=== PATIENT | female | born 1935 | race African-American/Black ===

== ENCOUNTER 2016-09-17 14:18 | Inpatient (IN) | payer MEDICARE, OTHER ==
[~2016-09-17] VITALS: Ht 147.3 cm; Wt 71.4 kg
[2016-09-17] VITALS (9 sets, daily range): BP systolic 144–269; BP diastolic 59–123
[~2016-09-17 14:18] MED LIST: ALEN70TA3 PO; ALPR0.254; AMLO10TA2; AMLO10TA4 PO; AMLO1TAB15 PO; ASPI81TA2 PO; CHOL10002 PO; CLON0.1T PO; CYAN10005 PO; FURO-68 PO; HYDR-2868 PO; HYDR10TA2 PO; Hydralazine PO; LABE200T2 PO; LEVO100T5 PO; LEVO200T5 PO; LEVO25TA4 PO; LISI40TA PO; METO100T2 PO; METO50TA2; METO5TAB55 PO; NATE60TA PO; OMEP20CA9 PO; PANT40TA3 PO; PANT40TA5; POLY17PO29 PO; POTA25PA PO; SITA50TA PO; VALS320T2 PO; VALS320T9; VENTOLIN HFA18 GM IH; [UNRECOGNIZED DRUG - OTHER]; combivent IH
[2016-09-17 15:17] LABS: BASO # 0.1 x10^3/uL (0.0-0.2); BASO % 1 % (0-3); EOS % 3 % (0-3); HEMATOCRIT 39.9 % (36.0-47.0); HEMOGLOBIN 13.6 g/dL (12.0-15.5); LYMPH # 1.3 x10^3/uL (1.0-4.8); LYMPH % 17 % (24-48); MEAN CORPUSCULAR HEMOGLOBIN 35 pg (25-35); MEAN CORPUSCULAR HGB CONC 34 g/dL (31-37); MEAN CORPUSCULAR VOLUME 102 fL (79-100); MONO % 6 % (0-9); NEUT % 73 % (31-73); PLATELET COUNT 452 x10^3/uL (140-400); RED BLOOD COUNT 3.92 x10^6/uL (3.50-5.40); WHITE BLOOD COUNT 7.5 x10^3/uL (4.0-11.0)
[2016-09-17 15:29] LABS: CALCIUM 9.6 mg/dL (8.5-10.1); CREATININE 1.4 mg/dL (0.6-1.0); GFR 43.6; POTASSIUM 3.4 mmol/L (3.5-5.1)
[2016-09-17 15:35] LABS: ALBUMIN 3.8 g/dL (3.4-5.0); ALBUMIN/GLOBULIN RATIO 0.7 (1.0-1.7); TOTAL BILIRUBIN 0.7 mg/dL (0.2-1.0)
--- NOTE | 2016-09-17 15:52 | RAD ---
Exam performed: One view chest. History: Direct admit to ICU. Date of service: 09/17/16. Comparison: 10/05/15. Single AP upright portable view chest findings: Cardiomegaly. Small bilateral pleural effusions with probable underlying atelectasis. There is no pneumothorax. Impression: Cardiomegaly with small bilateral pleural effusions.
--- NOTE | 2016-09-17 15:54 | EKG ---
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
[2016-09-17] MEDS ORDERED: hydrALAZINE 20 MG/ML VIAL. IVP PRN (16:15)
--- NOTE | 2016-09-17 16:29 | PDOC2 ---
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 Cammie Núñez SOURCE Source: Chart review, Patient HISTORY OF PRESENT ILLNESS HISTORY OF PRESENT ILLNESS 80 year old female admitted from PCP's office with SBP reportedly > 300. Patient with mild headache but denies visual changes, dizziness, lightheadedness, chest pain, dyspnea, or lower extremity edema. States she "forgets" to take BP meds. Reason for Visit: malignant HTN PAST MEDICAL HISTORY Cardiovascular: CHF (chronic diastolic), HTN, Hyperlipidemia Pulmonary: COPD, Other (recurrent bronchitis) CENTRAL NERVOUS SYSTEM: Periperal neuropathy GI: Constipation, Diverticulosis (2008), GERD, Hemorrhoids, Other (lactose intolerant; h. pylori and antral gastritis - 2010; lipoma of ascending colon - 2010) Heme/Onc: B12 deficiency Hepatobiliary: No pertinent hx Psych: Anxiety Musculoskeletal: Osteoarthritis ENT: Other (chronic open angle glaucoma; bilateral cataracts) Renal/: Chronic renal insuff (stage III) Endocrine: Diabetes, Hypothyroidism, Hyperparathyroidism, Osteoporosis, Other ( vitamin D deficiency) Grav: 9 Para: 8 PAST SURGICAL HISTORY Past Surgical History: Appendectomy, Cholecystectomy, Hernia Repair (abdominal ), Hysterectomy FAMILY HISTORY Family History: Cancer (stomach - father), Diabetes SOCIAL HISTORY Smoke: No ALCOHOL: none Drugs: None Lives: Alone CURRENT MEDICATIONS CURRENT MEDICATIONS Current Medications Medications (Trade) Dose Ordered Sig/Alexsander Route PRN Reason Start Time Stop Time Status Last Admin Dose Admin Nicardipine HCl 50 mg/Sodium Chloride 270 ml @ 0 mls/hr CONT PRN IV SEE I/O RECORD 09/17/16 14:45 09/17/16 15:20 ALLERGIES ALLERGIES: Coded Allergies: Penicillins (Verified Allergy, Severe, Rash, 02/13/16) levofloxacin (Verified Allergy, Severe, GI upset, 02/13/16) sulfamethoxazole (Verified Allergy, Severe, GI Upset, 02/13/16) trimethoprim (Verified Allergy, Severe, Swelling, 02/13/16) ROS Review of System 14 point review with pertinent positives in HPI PHYSICAL EXAM General: Alert, Oriented X3, Cooperative, No acute distress HEENT: Atraumatic, PERRLA Lungs: Clear to auscultation, Normal air movement Heart: Regular rate, Normal S1, Normal S2, No murmurs, Other (no carotid bruits ) Abdomen: Normal bowel sounds, Soft, No tenderness Extremities: No edema, Normal pulses Skin: No rashes Neuro: Normal speech Psych/Mental Status: Mental status NL, Mood NL MUSCULOSKELETAL: Osteoarthritic changes both hands LABS Lab: Laboratory Tests Test 09/17/16 15:05 White Blood Count 7.5 x10^3/uL (4.0-11.0) Red Blood Count 3.92 x10^6/uL (3.50-5.40) Hemoglobin 13.6 g/dL (12.0-15.5) Hematocrit 39.9 % (36.0-47.0) Mean Corpuscular Volume 102 fL (79-100) Mean Corpuscular Hemoglobin 35 pg (25-35) Mean Corpuscular Hemoglobin Concent 34 g/dL (31-37) Red Cell Distribution Width 13.0 % (11.5-14.5) Platelet Count 452 x10^3/uL (140-400) Neutrophils (%) (Auto) 73 % (31-73) Lymphocytes (%) (Auto) 17 % (24-48) Monocytes (%) (Auto) 6 % (0-9) Eosinophils (%) (Auto) 3 % (0-3) Basophils (%) (Auto) 1 % (0-3) Neutrophils # (Auto) 5.5 x10^3uL (1.8-7.7) Lymphocytes # (Auto) 1.3 x10^3/uL (1.0-4.8) Monocytes # (Auto) 0.4 x10^3/uL (0.0-1.1) Eosinophils # (Auto) 0.2 x10^3/uL (0.0-0.7) Basophils # (Auto) 0.1 x10^3/uL (0.0-0.2) Sodium Level 144 mmol/L (136-145) Potassium Level 3.4 mmol/L (3.5-5.1) Chloride Level 105 mmol/L (98-107) Carbon Dioxide Level 26 mmol/L (21-32) Anion Gap 13 (6-14) Blood Urea Nitrogen 20 mg/dL (7-20) Creatinine 1.4 mg/dL (0.6-1.0) Estimated GFR (Cockcroft-Gault) 43.6 BUN/Creatinine Ratio 14 (6-20) Glucose Level 122 mg/dL (70-99) Calcium Level 9.6 mg/dL (8.5-10.1) Total Bilirubin 0.7 mg/dL (0.2-1.0) Aspartate Amino Transf (AST/SGOT) 26 U/L (15-37) Alanine Aminotransferase (ALT/SGPT) 28 U/L (14-59) Alkaline Phosphatase 72 U/L (46-116) Total Protein 9.0 g/dL (6.4-8.2) Albumin 3.8 g/dL (3.4-5.0) Albumin/Globulin Ratio 0.7 (1.0-1.7) IMAGES IMAGES CXR - small bilateral pleural effusions EKG EKG completed - unable to review ECHOCARDIOGRAM ECHOCARDIOGRAM 08/2013: TTE: The left ventricle is normal size. The left ventricular systolic function is normal. The Ejection Fraction is 60-65 %. There is mild concentric left ventricular hypertrophy. The left atrium is mildly dilated. There is no significant aortic valvular stenosis. Doppler and Color Flow revealed no significant aortic regurgitation. Doppler and Color-flow revealed moderate mitral regurgitation. Doppler and Color Flow revealed moderate tricuspid regurgitation. The PA pressure was estimated at 45 mmHg. There is a small pericardial effusion with no hemodynamic significance. STRESS TEST STRESS TEST 11/17/2014: 1. No EKG evidence of stress-induced ischemia. 2. Nuclear imaging shows no reversible ischemia or infarct. 3. Normal left ventricular systolic function with an ejection fraction of greater than 70%. 4. Low risk Lexiscan nuclear stress test. HEART CATH HEART CATH 06/2015: FINDINGS 1. Hemodynamics: Left ventricular end-diastolic pressure of 21 mmHg. No pullback gradient across the aortic valve. 2. Coronary angiography: a. The left main coronary artery arose from the left sinus of Valsalva, gave rise to the left anterior descending and left circumflex arteries and did not show any significant stenosis. b. The left anterior descending artery did not show any significant stenosis. c. The left circumflex artery did not show any significant stenosis. d. The right coronary artery was a large and dominant vessel arising from the right sinus of Valsalva that did not show any significant stenosis. Conclusion No significant coronary artery disease. Recommendations Medical Therapy ASSESSMENT/PLAN ASSESSMENT/PLAN 1. malignant HTN has not taken meds regularly nicardipine gtt to control BP restart home beta-blockers tonight; losartan and amlodipine in a.m. holding lasix today repeat echo in a.m. 2. hypokalemia replace check Mg 3. chronic diastolic HF check NT-proBNP continue meds - restart furosemide in a.m cath in 2015 without significant findings 4. DM, II per primary service 5. COPD per primary service Problems: LUISA CRAMER MD 09/18/16 1648: CARDIAC CONSULT ALLERGIES ALLERGIES: Coded Allergies: Penicillins (Verified Allergy, Severe, Rash, 02/13/16) levofloxacin (Verified Allergy, Severe, GI upset, 02/13/16) sulfamethoxazole (Verified Allergy, Severe, GI Upset, 02/13/16) trimethoprim (Verified Allergy, Severe, Swelling, 02/13/16) ASSESSMENT/PLAN ASSESSMENT/PLAN Patient seen and examined 09/17/16 (late entry). Agree with DEPUTY ADMINISTRATOR's assessment and plan. Malignant hypertension secondary to non compliance. Restart home meds and titrate cardene off as tolerated. Chr diast heart failure compensated. Agree with repeat 2D echo. Thank you for your consultation. Problems: BREN RAO APRN September 17, 2016 16:29 LUISA CRAMER MD September 18, 2016 16:48
[2016-09-17] MEDS ORDERED: POTASSIUM CHLORIDE 20 MEQ TABLET.ER. PO ONE ×2 (16:30→17:45)
[2016-09-17] MEDS ORDERED: CHOL100013 PO (16:34)
[2016-09-17] MEDS ORDERED: NATE60TA2 PO (16:34)
[2016-09-17] MEDS ORDERED: POLY17PO29 PO (16:34)
[2016-09-17] MEDS ORDERED: POTA20TA4 PO (16:34)
[2016-09-17] MEDS ORDERED: TRAM50TA PO (16:34)
[2016-09-17] MEDS ORDERED: ALEN70TA3 PO (16:34)
[2016-09-17] MEDS ORDERED: NON FORMULARY ITEM (Albuterol Sulfate (Ventolin Hfa Inhaler) 2 PUFF) IH PRN (17:30)
[2016-09-17] MEDS ORDERED: cloNIDine HCL 0.1 MG TABLET PO PRN (17:30)
[2016-09-17] MEDS ORDERED: ALPRAZolam 0.25 MG TABLET PO PRN (17:30)
[2016-09-17] MEDS ORDERED: traMADol 50 MG TABLET PO PRN (17:30)
[2016-09-17] MEDS ORDERED: DEXTROSE 50% 25 GM / 50ML DISP.SYRIN. IV PRN (17:30)
--- NOTE | 2016-09-17 17:39 | PDOC ---
Provider Note Provider Note Pt seen.H&P dictated. #[id number] SAMMI DE PAZ MD September 17, 2016 17:39
--- NOTE | 2016-09-17 18:44 | RAD ---
PROCEDURE CT head without contrast HISTORY Hypertension, headache TECHNIQUE Exposure: One or more of the following individualized dose reduction techniques were utilized for this exam: 1. Automated exposure control. 2. Adjustment of the mA and/or kV according to patient size. 3. Use of iterative reconstruction technique. [address] imaging skullbase to vertex COMPARISON CT head June 27, 2012 FINDINGS Mild generalized brain atrophy is stable. Cerebral periventricular white matter hypoattenuation may be advanced relative to the prior exam. No intracranial hemorrhage, mass, obstructive hydrocephalus, extra-axial fluid collections or infarction. Small lucencies of the calvarium are stable considered benign given stability. Orbits, mastoids and paranasal sinuses are unremarkable. IMPRESSION No acute intracranial CT abnormality. 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 Electronically signed by: Misbah Louis MD (September 17, 2016 18:43:03)
--- NOTE | 2016-09-17 20:35 | HP ---
ADMIT DATE: 09/17/2016 LOCATION: [facility] REASON FOR ADMISSION: Malignant hypertension. HISTORY OF PRESENT ILLNESS: She is an 80-year-old female with history of hypertension, hyperlipidemia, diabetes, has been having problem with high blood pressure, on and off, going on and she says she had side effects from the medications, is not taking properly, came to the office, blood pressure was close to 300 systolic and 120 diastolic. The patient was admitted to the ICU for blood pressure control, was started on Cardene drip. The patient had a cardiac catheterization last year, shows no significant coronary artery disease. PAST MEDICAL HISTORY: Diabetes, chronic renal insufficiency, hypertension, hypothyroidism, osteoporosis, COPD, dysphagia, essential thrombocythemia, diverticulosis. PAST SURGICAL HISTORY: Cardiac catheterization last year, colonoscopy 2011, diverticulosis, esophageal stricture 2011 and recently 2014, hemorrhoids 2011, lipoma, ileocecal valve 2011, Schatzki ring. MEDICATIONS AT HOME: Amlodipine 10 mg daily, aspirin 81 daily, clonidine 0.1 three times daily, Combivent 2 puffs twice a day, DuoNeb 4 times daily, Fosamax 70 mg once a week, Lasix 40 mg daily, vitamin D 1000 units daily. Januvia 50 mg daily, potassium 25 mEq daily, metoprolol 50 mg twice a day, Starlix 60 mg twice a day, Protonix 40 mg daily, Synthroid 200 mcg daily, Tessalon Perles 100 mg, valsartan 320 mg daily, Ventolin 2 puffs 4 times daily, Xanax 0.25 daily. ALLERGIES: TO SULFA, PENICILLIN AND LEVAQUIN. REVIEW OF SYMPTOMS: HEENT: Complains of headaches as well as shortness of breath. GASTROINTESTINAL: No nausea or vomiting. NEUROLOGICAL: No weakness. Rest of the 14 systems was reviewed and negative. PHYSICAL EXAMINATION: VITAL SIGNS: At the time of admission, vitals shows blood pressure 270/123, temperature 99, pulse 100, respirations 20 and 93% on room air. HEENT: Head is atraumatic. Pupils equal. Oral cavity: Dentures. NECK: Supple. Thyroid not enlarged, JVD not elevated. CHEST: Symmetrical. CARDIOVASCULAR: S1, S2. LUNGS: Clear to auscultation. ABDOMEN: Soft, bowel sounds present, no mass palpable. EXTERNAL GENITALIA: No Tenorio. RECTAL: Deferred. EXTREMITIES: No calf tenderness, trace edema. NEUROLOGIC: Cranial nerves intact. Power 5/5 in all extremities. No focal deficits noted. LABORATORY DATA: Shows a white count of 7, hemoglobin 13, platelets 452. Electrolytes show sodium 144, potassium 3.4, chloride 105, BUN 20, creatinine 1.4, glucose 122, magnesium 2.0. LFTs were normal. Chest x-ray, cardiomegaly, small left pleural effusion. EKG done, report is pending and CT of the head was ordered for headache. Report is pending. FINAL IMPRESSION: 1. Malignant hypertension. 2. Uncontrolled hypertension. 3. Diabetes. 4. Hypertension. 5. Hypothyroidism. 6. Essential thrombocytosis. 7. History of diverticulosis. PLAN: At this time, admit to hospital. Control blood pressure with Cardene drip. Cardiology was consulted. Renal was consulted and DVT prophylaxis. Further recommendations to follow. SAMMI DE PAZ MD DR: BHAVANA/sb JOB#: [id number] / [id number] LANDON
[2016-09-17] MEDS: METOPROLOL TART IMMED RELEASE 50 MG TABLET. PO SCH (20:53)
[2016-09-17] MEDS: POLYETHYLENE GLYCOL 3350 17 GM PACKET. PO SCH (20:53)
[2016-09-17] MEDS: ALBUTEROL SULFATE 2.5 MG/3 ML NEBU. NEB PRN (23:07)
[2016-09-18] VITALS (15 sets, daily range): BP systolic 120–177; BP diastolic 50–82
[2016-09-18 00:01] LABS: BILIRUBIN,URINE NEGATIVE (NEG); GLUCOSE,URINE 100 mg/dL (NEG); NITRITE,URINE NEGATIVE (NEG); PROTEIN,URINE 30 mg/dL (NEG-TRACE); UROBILINOGEN,URINE 0.2 mg/dL (0.2 mg/dL)
[2016-09-18 00:20] LABS: BACTERIA,URINE 0 /HPF (0-FEW); RBC,URINE 0 /HPF (0-2); SQUAMOUS EPITHELIAL CELL,UR OCC /LPF
--- NOTE | 2016-09-18 00:36 | ACF ---
Admission Forms Criteria HYPERTENSION Clinical Indications for Admission to Inpatient Care ( Place "X" for any and all applicable criteria): Admission is indicated for ANY ONE of the following(1)(2)(3)(4): [ ]I. Hypertensive emergency, with evidence of acute and progressing target organ disease as indicated by ANY ONE of the following: [ ]a) Hypertensive encephalopathy (eg, confusion, altered mental status) [ ]b) Cerebral infarction [ ]c) Intracranial hemorrhage [ ]d) Myocardial ischemia or infarction [ ]e) Pulmonary edema [ ]f) Aortic dissection [ ]g) Seizure [ ]h) Acute renal insufficiency [ ]i) Papilledema [ ]j) Microangiopathic hemolytic anemia [ ]II. Adrenergic crisis (eg, severe hypertension due to pheochromocytoma crisis, cocaine or amphetamine intoxication, or clonidine withdrawal) [X]III. Severe hypertension (SBP greater than 180 mmHg or DBP greater than 110 mmHg or greater than the 95th percentile for age, gender, and height in pediatric patients) that cannot be controlled (eg, to SBP less than 160 mmHg and DBP less than 100 mmHg in adults) by treatment with oral medication in emergency department or observation care Extended stay beyond goal length of stay may be needed for(11)(12)(13): [ ]a) Persistent hypertensive encephalopathy [ ]b) Continuation of pulmonary edema [ ]c) Recurring or persistent severe hypertension [ ]d) Target organ damage (eg, angina, stroke, aortic dissection) [ ]e) Associated renal insufficiency The original [facility] content created by [employer] has been revised. The portions of the content which have been revised are identified through the use of italic text or in bold, and [facility] has neither reviewed nor approved the modified material. All other unmodified content is copyright [facility]. Please see references footnoted in the original [facility] edition 2016 Admission Criteria Met?: Yes HANNY SANDERS September 18, 2016 00:36
[2016-09-18] MEDS: ALBUTEROL SULFATE 2.5 MG/3 ML NEBU. NEB PRN (05:44)
[2016-09-18 06:10] LABS: BASO % 1 % (0-3); EOS % 4 % (0-3); HEMATOCRIT 37.4 % (36.0-47.0); HEMOGLOBIN 12.4 g/dL (12.0-15.5); LYMPH # 1.8 x10^3/uL (1.0-4.8); LYMPH % 29 % (24-48); MEAN CORPUSCULAR HEMOGLOBIN 34 pg (25-35); MEAN CORPUSCULAR HGB CONC 33 g/dL (31-37); MEAN CORPUSCULAR VOLUME 103 fL (79-100); MONO % 7 % (0-9); NEUT % 59 % (31-73); PLATELET COUNT 432 x10^3/uL (140-400); RED BLOOD COUNT 3.63 x10^6/uL (3.50-5.40); RED CELL DISTRIBUTION WIDTH 13.4 % (11.5-14.5); WHITE BLOOD COUNT 6.3 x10^3/uL (4.0-11.0)
[2016-09-18 06:33] LABS: CALCIUM 8.5 mg/dL (8.5-10.1); CREATININE 1.2 mg/dL (0.6-1.0); POTASSIUM 3.7 mmol/L (3.5-5.1)
[2016-09-18 06:35] LABS: CHOLESTEROL/HDL RATIO 2.3
[2016-09-18] MEDS: INSULIN ASPART 300 UNITS/3 ML INSULN.PEN SQ SCH ×3 (08:00→17:00)
[2016-09-18] MEDS ORDERED: METOPROLOL TART IMMED RELEASE 50 MG TABLET. PO SCH (08:00)
[2016-09-18] MEDS: LEVOTHYROXINE 100 MCG TABLET PO SCH (08:26)
[2016-09-18] MEDS: ASPIRIN CHEWABLE 81 MG TABLET. PO SCH (08:26)
[2016-09-18] MEDS: PANTOPRAZOLE 40 MG TABLET.DR. PO SCH (08:26)
[2016-09-18] MEDS: REPAGLINIDE 0.5 MG TABLET PO SCH ×3 (08:26→16:30)
[2016-09-18] MEDS: POTASSIUM CHLORIDE 20 MEQ TABLET.ER. PO SCH (08:27)
[2016-09-18] MEDS: LOSARTAN POTASSIUM 50 MG TABLET. PO SCH (08:27)
[2016-09-18] MEDS: LINAGLIPTIN 5 MG TABLET PO SCH (08:27)
[2016-09-18] MEDS: METOPROLOL TART IMMED RELEASE 50 MG TABLET. PO SCH ×2 (08:28→21:17)
[2016-09-18] MEDS: FUROSEMIDE 40 MG TABLET. PO SCH (08:28)
[2016-09-18] MEDS: amLODIPine BESYLATE 10 MG TABLET PO SCH (08:28)
[2016-09-18] MEDS: POLYETHYLENE GLYCOL 3350 17 GM PACKET. PO SCH ×2 (08:28→21:18)
[2016-09-18] MEDS ORDERED: FUROSEMIDE 40 MG TABLET. PO SCH (09:00)
[2016-09-18] MEDS ORDERED: amLODIPine BESYLATE 10 MG TABLET PO SCH (09:00)
[2016-09-18] MEDS ORDERED: LOSARTAN POTASSIUM 50 MG TABLET. PO SCH (09:00)
--- NOTE | 2016-09-18 09:44 | PDOC ---
PROGRESS NOTES Subjective Subjective Off cardine drip, no cp or sob Objective Objective Vital Signs Date Time Temp Pulse Resp B/P (MAP) Pulse Ox O2 Delivery O2 Flow Rate FiO2 09/18/16 08:28 79 158/61 09/18/16 08:00 98.3 16 93 Room Air 98.3 09/18/16 06:00 2.0 Intake and Output 09/18/16 07:00 Intake Total 700 ml Output Total 277 ml Balance 423 ml Intake Oral 700 ml Output Urine Total 277 ml # Voids 2 Physical Exam Abdomen: Normal bowel sounds, Soft, No tenderness Heart: Regular rate, Normal S1, Normal S2, No murmurs, Other (no carotid bruits ) Extremities: No edema, Normal pulses General: Alert, Oriented X3, Cooperative, No acute distress HEENT: Atraumatic, PERRLA Lungs: Clear to auscultation, Normal air movement MUSCULOSKELETAL: Osteoarthritic changes both hands Neuro: Normal speech Psych/Mental Status: Mental status NL, Mood NL Skin: No rashes Assessment Assessment FINAL IMPRESSION: 1. Malignant hypertension. 2. Uncontrolled hypertension. 3. Diabetes. 4. Hypertension. 5. Hypothyroidism. 6. Essential thrombocytosis. 7. History of diverticulosis. PLAN: Off cardine drip. resumed home meds. Ct head -ve.atrophy. cxr cardiomegaly+mild effusions ekg -ve for ischemia. cardiology + renal consult. labs cr 1.2 .tsh 14-not taking synthroid regularly. At this time, admit to hospital. Control blood pressure with Cardene drip. Cardiology was consulted. Renal was consulted and DVT prophylaxis. Further recommendations to follow. Problems: Comment Review of Relevant I have reviewed the following items ev (where applicable) has been applied. Labs Laboratory Tests Test 09/17/16 15:05 09/17/16 16:00 09/17/16 23:51 09/18/16 05:30 White Blood Count 7.5 x10^3/uL (4.0-11.0) 6.3 x10^3/uL (4.0-11.0) Red Blood Count 3.92 x10^6/uL (3.50-5.40) 3.63 x10^6/uL (3.50-5.40) Hemoglobin 13.6 g/dL (12.0-15.5) 12.4 g/dL (12.0-15.5) Hematocrit 39.9 % (36.0-47.0) 37.4 % (36.0-47.0) Mean Corpuscular Volume 102 fL (79-100) 103 fL (79-100) Mean Corpuscular Hemoglobin 35 pg (25-35) 34 pg (25-35) Mean Corpuscular Hemoglobin Concent 34 g/dL (31-37) 33 g/dL (31-37) Red Cell Distribution Width 13.0 % (11.5-14.5) 13.4 % (11.5-14.5) Platelet Count 452 x10^3/uL (140-400) 432 x10^3/uL (140-400) Neutrophils (%) (Auto) 73 % (31-73) 59 % (31-73) Lymphocytes (%) (Auto) 17 % (24-48) 29 % (24-48) Monocytes (%) (Auto) 6 % (0-9) 7 % (0-9) Eosinophils (%) (Auto) 3 % (0-3) 4 % (0-3) Basophils (%) (Auto) 1 % (0-3) 1 % (0-3) Neutrophils # (Auto) 5.5 x10^3uL (1.8-7.7) 3.7 x10^3uL (1.8-7.7) Lymphocytes # (Auto) 1.3 x10^3/uL (1.0-4.8) 1.8 x10^3/uL (1.0-4.8) Monocytes # (Auto) 0.4 x10^3/uL (0.0-1.1) 0.4 x10^3/uL (0.0-1.1) Eosinophils # (Auto) 0.2 x10^3/uL (0.0-0.7) 0.3 x10^3/uL (0.0-0.7) Basophils # (Auto) 0.1 x10^3/uL (0.0-0.2) 0.0 x10^3/uL (0.0-0.2) Sodium Level 144 mmol/L (136-145) 142 mmol/L (136-145) Potassium Level 3.4 mmol/L (3.5-5.1) 3.7 mmol/L (3.5-5.1) Chloride Level 105 mmol/L (98-107) 107 mmol/L (98-107) Carbon Dioxide Level 26 mmol/L (21-32) 26 mmol/L (21-32) Anion Gap 13 (6-14) 9 (6-14) Blood Urea Nitrogen 20 mg/dL (7-20) 16 mg/dL (7-20) Creatinine 1.4 mg/dL (0.6-1.0) 1.2 mg/dL (0.6-1.0) Estimated GFR (Cockcroft-Gault) 43.6 52.0 BUN/Creatinine Ratio 14 (6-20) Glucose Level 122 mg/dL (70-99) 146 mg/dL (70-99) Calcium Level 9.6 mg/dL (8.5-10.1) 8.5 mg/dL (8.5-10.1) Magnesium Level 2.0 mg/dL (1.8-2.4) Total Bilirubin 0.7 mg/dL (0.2-1.0) Aspartate Amino Transf (AST/SGOT) 26 U/L (15-37) Alanine Aminotransferase (ALT/SGPT) 28 U/L (14-59) Alkaline Phosphatase 72 U/L (46-116) IP-Waz-Y-Type Natriuretic Peptide 1629 pg/mL (0-449) Total Protein 9.0 g/dL (6.4-8.2) Albumin 3.8 g/dL (3.4-5.0) Albumin/Globulin Ratio 0.7 (1.0-1.7) Nasal Screen MRSA (PCR) Negative (Negative) Urine Collection Type Unknown Urine Color Yellow Urine Clarity Clear Urine pH 7.0 Urine Specific [place] 1.010 Urine Protein 30 mg/dL (NEG-TRACE) Urine Glucose (UA) 100 mg/dL (NEG) Urine Ketones (Stick) Negative mg/dL (NEG) Urine Blood Negative (NEG) Urine Nitrite Negative (NEG) Urine Bilirubin Negative (NEG) Urine Urobilinogen Dipstick 0.2 mg/dL (0.2 mg/dL) Urine Leukocyte Esterase Trace (NEG) Urine RBC 0 /HPF (0-2) Urine WBC 1-4 /HPF (0-4) Urine Squamous Epithelial Cells Occ /LPF Urine Bacteria 0 /HPF (0-FEW) Urine Mucus Slight /LPF Triglycerides Level 70 mg/dL (0-150) Cholesterol Level 136 mg/dL (0-200) LDL Cholesterol, Calculated 62 mg/dL (0-100) VLDL Cholesterol, Calculated 14 mg/dL (0-40) Non-HDL Cholesterol Calculated 76 mg/dL (0-129) HDL Cholesterol 60 mg/dL (40-60) Cholesterol/HDL Ratio 2.3 Thyroid Stimulating Hormone (TSH) 14.283 uIU/mL (0.358-3.74) Test 09/18/16 08:25 Glucose (Fingerstick) 134 mg/dL (70-99) Medications Current Medications Albuterol Sulfate (Ventolin Neb Soln) 2.5 mg PRN Q6HRS PRN NEB SHORTNESS OF BREATH Last administered on 09/18/16 05:44; Start 09/17/16 at 17:45 Alprazolam (Xanax) 0.25 mg PRN BID PRN PO ANXIETY; Start 09/17/16 at 17:30 Amlodipine Besylate (Norvasc) 10 mg DAILY PO Last administered on 09/18/16 08: 28; Start 09/18/16 at 09:00 Amlodipine Besylate (Norvasc) 10 mg DAILY PO ; Start 09/18/16 at 09:00; Status Cancel Aspirin (Children'S Aspirin) 81 mg DAILY PO Last administered on 09/18/16 08:26 ; Start 09/18/16 at 09:00 Clonidine HCl (Catapres) 0.1 mg PRN DAILY PRN PO ELEVATED BP, SEE COMMENTS; Start 09/17/16 at 17:30 Dextrose (Dextrose 50%-Water Syringe) 12.5 gm PRN Q15MIN PRN IV SEE COMMENTS; Start 09/17/16 at 17:30 Furosemide (Lasix) 40 mg DAILY PO Last administered on 09/18/16 08:28; Start at 09:00 Furosemide (Lasix) 40 mg DAILY PO ; Start 09/18/16 at 09:00; Status Cancel Hydralazine HCl (Apresoline) 10 mg PRN Q4HRS PRN IVP ELEVATED BP, SEE COMMENTS Last administered on 09/18/16 04:05; Start 09/17/16 at 16:15 Insulin Aspart (Novolog) 0-7 UNITS TIDWMEALS SQ ; Start 09/18/16 at 08:00 Levothyroxine Sodium (Synthroid) 200 mcg DAILY07 PO Last administered on 08:26; Start 09/18/16 at 07:00 Linagliptin (Tradjenta) 5 mg DAILY PO Last administered on 09/18/16 08:27; Start 09/18/16 at 09:00 Losartan Potassium (Cozaar) 50 mg DAILYWLUN PO Last administered on 09/18/16 08 :27; Start 09/18/16 at 12:00 Losartan Potassium (Cozaar) 100 mg DAILY PO ; Start 09/18/16 at 09:00; Stop at 09:00; Status DC Metoprolol Tartrate (Lopressor) 50 mg BID PO Last administered on 09/18/16 08: 28; Start 09/17/16 at 21:00 Metoprolol Tartrate (Lopressor) 50 mg BID PO ; Start 09/18/16 at 08:00; Status Cancel Nicardipine HCl 50 mg/Sodium Chloride 270 ml @ 0 mls/hr CONT PRN IV SEE I/O RECORD Last administered on 09/17/16 15:20; Start 09/17/16 at 14:45 Non-Formulary Medication 2 puff PRN Q4-6HRS PRN IH SHORTNESS OF BREATH; Start at 17:30; Stop 09/17/16 at 17:53; Status DC Non-Formulary Medication 70 mg WEEKLY PO ; Start 09/24/16 at 09:00; Status UNV Pantoprazole Sodium (Protonix) 40 mg DAILY PO Last administered on 09/18/16 08: 26; Start 09/18/16 at 09:00 Polyethylene Glycol (miraLAX PACKET) 17 gm BID PO Last administered on 20:53; Start 09/17/16 at 21:00 Potassium Chloride (Klor-Con) 20 meq 1X ONCE PO ; Start 09/17/16 at 17:45; Stop 09/17/16 at 17:46; Status DC Potassium Chloride (Klor-Con) 20 meq DAILY PO Last administered on 09/18/16 08: 27; Start 09/18/16 at 09:00 Potassium Chloride (Klor-Con) 40 meq 1X ONCE PO Last administered on 09/17/16 18:01; Start 09/17/16 at 16:30; Stop 09/17/16 at 16:31; Status DC Repaglinide (Prandin) 0.5 mg TIDAC PO Last administered on 09/18/16 08:26; Start 09/18/16 at 07:30 Tramadol HCl (Ultram) 50 mg PRN Q12HR PRN PO ANXIETY / AGITATION Last administered on 09/17/16 18:02; Start 09/17/16 at 17:30 Vitals/I & O Vital Sign - Last 24 Hours 09/17/16 09/17/16 09/17/16 09/17/16 15:00 15:00 15:30 17:00 Temp 99.0 99.0 Pulse 110 102 102 Resp 20 20 18 B/P (MAP) 269/123 (171) 218/80 (126) 178/97 (124) Pulse Ox 93 92 94 O2 Delivery Room Air Room Air Room Air Room Air 09/17/16 09/17/16 09/17/16 09/17/16 18:00 18:02 19:00 20:00 Pulse 106 99 Resp 18 18 B/P (MAP) 206/77 (120) 161/63 (95) Pulse Ox 93 95 O2 Delivery Room Air Room Air Room Air Nasal Cannula O2 Flow Rate 2.0 09/17/16 09/17/16 09/17/16 09/17/16 20:00 20:53 21:00 22:00 Temp 98.6 98.6 Pulse 102 101 88 88 Resp 24 23 30 B/P (MAP) 154/59 (90) 150/64 147/63 (91) 155/60 (91) Pulse Ox 96 94 98 O2 Delivery Nasal Cannula Nasal Cannula Nasal Cannula O2 Flow Rate 2.0 2.0 2.0 09/17/16 09/17/16 09/17/16 09/18/16 23:00 23:09 23:59 00:00 Temp 98.5 98.5 Pulse 78 72 Resp 24 23 B/P (MAP) 144/60 (88) 159/61 (93) Pulse Ox 98 97 96 O2 Delivery Nasal Cannula Nasal Cannula Nasal Cannula Nasal Cannula O2 Flow Rate 2.0 2.0 2.0 2.0 09/18/16 09/18/16 09/18/16 09/18/16 01:00 02:00 03:00 04:00 Pulse 72 73 69 Resp 33 18 26 B/P (MAP) 149/62 (91) 160/55 (90) 161/76 (104) Pulse Ox 98 99 96 O2 Delivery Nasal Cannula Nasal Cannula Nasal Cannula Room Air O2 Flow Rate 2.0 2.0 2.0 09/18/16 09/18/16 09/18/16 09/18/16 04:00 04:05 05:00 05:45 Temp 98.7 98.7 Pulse 73 73 78 Resp 20 19 B/P (MAP) 176/76 (109) 176/76 177/82 (113) Pulse Ox 97 96 95 O2 Delivery Room Air Nasal Cannula Nasal Cannula O2 Flow Rate 2.0 2.0 09/18/16 09/18/16 09/18/16 09/18/16 06:00 07:00 08:00 08:00 Temp 98.3 98.3 Pulse 72 83 81 Resp 16 15 16 B/P (MAP) 139/66 (90) 165/71 (102) 158/61 (93) Pulse Ox 94 95 93 O2 Delivery Nasal Cannula Room Air Room Air Room Air O2 Flow Rate 2.0 09/18/16 09/18/16 09/18/16 08:27 08:28 08:28 Pulse 77 79 79 B/P (MAP) 158/61 158/61 158/61 Intake and Output 09/17/16 09/17/16 09/18/16 15:00 23:00 07:00 Intake Total 200 ml 500 ml Output Total 2 ml 275 ml Balance 198 ml 225 ml SAMMI DE PAZ MD September 18, 2016 09:44
--- NOTE | 2016-09-18 11:01 | CARD ---
APPROVED REPORT EXAM: Two-dimensional and M-mode echocardiogram with Doppler and color Doppler. Other Information Quality : Average Rhythm : NSR INDICATION Hypertension/HCVD 2D DIMENSIONS RVDd2.1 (2.9-3.5cm)Left Atrium(2D)3.7 (1.6-4.0cm) IVSd1.6 (0.7-1.1cm)Aortic Root(2D)2.8 (2.0-3.7cm) LVDd3.5 (3.9-5.9cm)LVOT Diameter2.0 (1.8-2.4cm) PWd1.6 (0.7-1.1cm)LVDs2.4 (2.5-4.0cm) FS (%) 33.1 %SV33.0 ml LVEF(%)62.7 (>50%) Aortic Valve AoV Peak Dao.133.0cm/sAoV VTI30.2cm AO Peak GR.7.1mmHgLVOT VTI 27.35cm AO Mean GR.4mmHg Mitral Valve MV E Jzmiewdu326.9cm/sMV E Peak Gr.4mmHg MV DECEL [id number] A Ifduywaq83.2cm/s MV NSF33obS/A Ratio1.4 MV A [id number] (PHT)3.06cm2 TDI Lateral E' P. V6.63cm/sMedial E' P. V4.96cm/s E/Lateral E'15.4E/Medial E'20.5 Tricuspid Valve TR P. Vipinpdp352eq/sRAP [id number] TR Peak Gr.[id number] LEFT VENTRICLE The left ventricle is normal size. There is mild to moderate concentric left ventricular hypertrophy. Left ventricle systolic function is normal. The Ejection Fraction is 60-65%. There is normal LV segm ental wall motion. The left ventricular diastolic function and filling is normal for age. There is no ventricular septal defect visualized. RIGHT VENTRICLE The right ventricle is normal size. The right ventricular systolic function is normal. ATRIA The left atrium size is normal. The right atrium size is normal. The interatrial septum is intact wit h no evidence for an atrial septal defect or patent foramen ovale as noted on 2-D or Doppler imaging. AORTIC VALVE Cannot rule out calcified and restricted motion of the RCC> The aortic valve is trileaflet. Doppler a nd Color Flow revealed no significant aortic regurgitation. There is no significant aortic valvular s tenosis. MITRAL VALVE The mitral valve is normal in structure. There is no mitral valve stenosis. Doppler and Color Flow re vealed mild mitral regurgitation. TRICUSPID VALVE The tricuspid valve is normal in structure and function. Doppler and Color Flow revealed trace to mil d tricuspid regurgitation. The PA pressure was estimated at 26 mmHg. There is no tricuspid valve sten osis. PULMONIC VALVE The pulmonic valve is not well visualized. Doppler and Color Flow revealed no pulmonic valvular regur gitation. There is no pulmonic valvular stenosis. GREAT VESSELS The aortic root is normal in size. The IVC is normal in size and collapses >50% with inspiration. PERICARDIAL EFFUSION There is bilateral pleural effusions. There is a trace circumferential pericardial effusion. Critical Notification Date: 09/18/2016 Time: 10:29 Other Discipline : ETHAN Kirk Critical Value: Yes <Conclusion> Left ventricle systolic function is normal. The Ejection Fraction is 60-65%. There is normal LV segmental wall motion. There is mild to moderate concentric left ventricular hypertrophy. There is bilateral pleural effusions.
--- NOTE | 2016-09-18 11:34 | PDOC2 ---
CONSULT Date of Consult Date of Consult DATE: 09/18/16 TIME: 11:31 Reason for Consult Reason for Consult: MALIGNANT HTN AND CKD Referring Physician Referring Physician: BALDEV Identification/Chief Complaint Chief Complaint CONFUSION Source Source: Chart review History of Present Illness Reason for Visit: THIS IS AN 80 YR OLD ADMITTED WITH CONFUSION. SHE IS NOTED TO HAVE A SBP OF ABOUT 260 AND DBP OF ABOUT 120 ON ADMIT. HER CR IS ABOUT 1.4-1.5. SHE HAS A HX OF HTN AND DM. NO HX OF ANY KIDNEY OR BLADDER SURGERIES HEMATURIA DYSURIA OR FREQUENCY NOTED Past Medical History Cardiovascular: CHF (chronic diastolic), HTN, Hyperlipidemia Pulmonary: COPD, Other (recurrent bronchitis) CENTRAL NERVOUS SYSTEM: Periperal neuropathy GI: Constipation, Diverticulosis (2008), GERD, Hemorrhoids, Other (lactose intolerant; h. pylori and antral gastritis - 2010; lipoma of ascending colon - 2010) Heme/Onc: B12 deficiency Hepatobiliary: No pertinent hx Psych: Anxiety Musculoskeletal: Osteoarthritis Rheumatologic: No pertinent hx Infectious disease: No pertinent hx ENT: Other (chronic open angle glaucoma; bilateral cataracts) Renal/: Chronic renal insuff (stage III) Endocrine: Diabetes, Hypothyroidism, Hyperparathyroidism, Osteoporosis, Other ( vitamin D deficiency) Grav: 9 Para: 8 Past Surgical History Past Surgical History: Appendectomy, Cholecystectomy, Hernia Repair (abdominal ), Hysterectomy Family History Family History: Cancer (stomach - father), Diabetes Social History No ALCOHOL: none Drugs: None Lives: Alone Domestic Violence: Neg Current Medications Current Medications Current Medications Nicardipine HCl 50 mg/Sodium Chloride 270 ml @ 0 mls/hr CONT PRN IV SEE I/O RECORD Last administered on 09/17/16 15:20; Start 09/17/16 at 14:45 Metoprolol Tartrate (Lopressor) 50 mg BID PO Last administered on 09/18/16 08: 28; Start 09/17/16 at 21:00 Losartan Potassium (Cozaar) 50 mg DAILYWLUN PO Last administered on 09/18/16 08 :27; Start 09/18/16 at 12:00 Amlodipine Besylate (Norvasc) 10 mg DAILY PO ; Start 09/18/16 at 09:00; Status Cancel Hydralazine HCl (Apresoline) 10 mg PRN Q4HRS PRN IVP ELEVATED BP, SEE COMMENTS Last administered on 09/18/16 04:05; Start 09/17/16 at 16:15 Potassium Chloride (Klor-Con) 40 meq 1X ONCE PO Last administered on 09/17/16 18:01; Start 09/17/16 at 16:30; Stop 09/17/16 at 16:31; Status DC Furosemide (Lasix) 40 mg DAILY PO ; Start 09/18/16 at 09:00; Status Cancel Insulin Aspart (Novolog) 0-7 UNITS TIDWMEALS SQ ; Start 09/18/16 at 08:00 Dextrose (Dextrose 50%-Water Syringe) 12.5 gm PRN Q15MIN PRN IV SEE COMMENTS; Start 09/17/16 at 17:30 Alprazolam (Xanax) 0.25 mg PRN BID PRN PO ANXIETY; Start 09/17/16 at 17:30 Amlodipine Besylate (Norvasc) 10 mg DAILY PO Last administered on 09/18/16 08: 28; Start 09/18/16 at 09:00 Aspirin (Children'S Aspirin) 81 mg DAILY PO Last administered on 09/18/16 08:26 ; Start 09/18/16 at 09:00 Clonidine HCl (Catapres) 0.1 mg PRN DAILY PRN PO ELEVATED BP, SEE COMMENTS; Start 09/17/16 at 17:30 Furosemide (Lasix) 40 mg DAILY PO Last administered on 09/18/16 08:28; Start at 09:00 Metoprolol Tartrate (Lopressor) 50 mg BID PO ; Start 09/18/16 at 08:00; Status Cancel Pantoprazole Sodium (Protonix) 40 mg DAILY PO Last administered on 09/18/16 08: 26; Start 09/18/16 at 09:00 Polyethylene Glycol (miraLAX PACKET) 17 gm BID PO Last administered on 20:53; Start 09/17/16 at 21:00 Potassium Chloride (Klor-Con) 20 meq DAILY PO Last administered on 09/18/16 08: 27; Start 09/18/16 at 09:00 Tramadol HCl (Ultram) 50 mg PRN Q12HR PRN PO ANXIETY / AGITATION Last administered on 09/17/16 18:02; Start 09/17/16 at 17:30 Non-Formulary Medication 2 puff PRN Q4-6HRS PRN IH SHORTNESS OF BREATH; Start at 17:30; Stop 09/17/16 at 17:53; Status DC Non-Formulary Medication 70 mg WEEKLY PO ; Start 09/24/16 at 09:00; Status UNV Levothyroxine Sodium (Synthroid) 200 mcg DAILY07 PO Last administered on 08:26; Start 09/18/16 at 07:00 Repaglinide (Prandin) 0.5 mg TIDAC PO Last administered on 09/18/16 08:26; Start 09/18/16 at 07:30 Linagliptin (Tradjenta) 5 mg DAILY PO Last administered on 09/18/16 08:27; Start 09/18/16 at 09:00 Losartan Potassium (Cozaar) 100 mg DAILY PO ; Start 09/18/16 at 09:00; Stop at 09:00; Status DC Potassium Chloride (Klor-Con) 20 meq 1X ONCE PO ; Start 09/17/16 at 17:45; Stop 09/17/16 at 17:46; Status DC Albuterol Sulfate (Ventolin Neb Soln) 2.5 mg PRN Q6HRS PRN NEB SHORTNESS OF BREATH Last administered on 09/18/16 05:44; Start 09/17/16 at 17:45 Active Scripts Active Reported Tramadol Hcl 50 Mg Tablet 1 Tab PO PRN Q12HR PRN Nateglinide 60 Mg Tablet 60 Mg PO TIDBFRMEAL Miralax (Polyethylene Glycol 3350) 17 Gm Powd.pack 1 Packet PO BID Klor-Con M20 (Potassium Chloride) 20 Meq Tab.er.prt 25 Meq PO DAILY Fosamax (Alendronate Sodium) 70 Mg Tablet 70 Mg PO WEEKLY Vitamin D (Cholecalciferol (Vitamin D3)) 1,000 Unit Capsule 1,000 Unit PO Pantoprazole Sodium 40 Mg Tablet. Alprazolam 0.25 Mg Tablet Metoprolol Tartrate 50 Mg Tablet Norvasc (Amlodipine Besylate) 10 Mg Tablet 10 Mg PO DAILY Clonidine Hcl 0.1 Mg Tablet 1 Tab PO DAILY PRN Januvia (Sitagliptin Phosphate) 50 Mg Tablet 1 Tab PO DAILY Levothyroxine Sodium 200 Mcg Tablet 1 Tab PO DAILY Ventolin Hfa Inhaler (Albuterol Sulfate) 18 Gm Hfa.aer.ad 2 Puff IH PRN Q4-6HRS PRN Diovan (Valsartan) 320 Mg Tablet 320 Mg PO DAILY Aspirin 81 Mg Tab.chew 81 Mg PO Lasix (Furosemide) 40 Mg Tablet 40 Mg PO DAILY Allergies Allergies: Coded Allergies: Penicillins (Verified Allergy, Severe, Rash, 02/13/16) levofloxacin (Verified Allergy, Severe, GI upset, 02/13/16) sulfamethoxazole (Verified Allergy, Severe, GI Upset, 02/13/16) trimethoprim (Verified Allergy, Severe, Swelling, 02/13/16) ROS Review of System UNABLE TO OBTAIN Physical Exam General: Cooperative, No acute distress HEENT: Atraumatic, PERRLA Lungs: Clear to auscultation, Normal air movement Heart: Regular rate Abdomen: Normal bowel sounds, Soft, No tenderness Extremities: No clubbing Skin: No breakdown Neuro: Other (CONFUSED) Psych/Mental Status: Other (CONFUSED) MUSCULOSKELETAL: No deformity Vitals VITALS Vital Signs Date Time Temp Pulse Resp B/P (MAP) Pulse Ox O2 Delivery O2 Flow Rate FiO2 09/18/16 10:00 65 16 132/63 (86) 95 Room Air 09/18/16 08:00 98.3 98.3 09/18/16 06:00 2.0 Labs Labs Laboratory Tests Test 09/17/16 15:05 09/17/16 16:00 09/17/16 23:51 09/18/16 05:30 White Blood Count 7.5 x10^3/uL (4.0-11.0) 6.3 x10^3/uL (4.0-11.0) Red Blood Count 3.92 x10^6/uL (3.50-5.40) 3.63 x10^6/uL (3.50-5.40) Hemoglobin 13.6 g/dL (12.0-15.5) 12.4 g/dL (12.0-15.5) Hematocrit 39.9 % (36.0-47.0) 37.4 % (36.0-47.0) Mean Corpuscular Volume 102 fL (79-100) 103 fL (79-100) Mean Corpuscular Hemoglobin 35 pg (25-35) 34 pg (25-35) Mean Corpuscular Hemoglobin Concent 34 g/dL (31-37) 33 g/dL (31-37) Red Cell Distribution Width 13.0 % (11.5-14.5) 13.4 % (11.5-14.5) Platelet Count 452 x10^3/uL (140-400) 432 x10^3/uL (140-400) Neutrophils (%) (Auto) 73 % (31-73) 59 % (31-73) Lymphocytes (%) (Auto) 17 % (24-48) 29 % (24-48) Monocytes (%) (Auto) 6 % (0-9) 7 % (0-9) Eosinophils (%) (Auto) 3 % (0-3) 4 % (0-3) Basophils (%) (Auto) 1 % (0-3) 1 % (0-3) Neutrophils # (Auto) 5.5 x10^3uL (1.8-7.7) 3.7 x10^3uL (1.8-7.7) Lymphocytes # (Auto) 1.3 x10^3/uL (1.0-4.8) 1.8 x10^3/uL (1.0-4.8) Monocytes # (Auto) 0.4 x10^3/uL (0.0-1.1) 0.4 x10^3/uL (0.0-1.1) Eosinophils # (Auto) 0.2 x10^3/uL (0.0-0.7) 0.3 x10^3/uL (0.0-0.7) Basophils # (Auto) 0.1 x10^3/uL (0.0-0.2) 0.0 x10^3/uL (0.0-0.2) Sodium Level 144 mmol/L (136-145) 142 mmol/L (136-145) Potassium Level 3.4 mmol/L (3.5-5.1) 3.7 mmol/L (3.5-5.1) Chloride Level 105 mmol/L (98-107) 107 mmol/L (98-107) Carbon Dioxide Level 26 mmol/L (21-32) 26 mmol/L (21-32) Anion Gap 13 (6-14) 9 (6-14) Blood Urea Nitrogen 20 mg/dL (7-20) 16 mg/dL (7-20) Creatinine 1.4 mg/dL (0.6-1.0) 1.2 mg/dL (0.6-1.0) Estimated GFR (Cockcroft-Gault) 43.6 52.0 BUN/Creatinine Ratio 14 (6-20) Glucose Level 122 mg/dL (70-99) 146 mg/dL (70-99) Calcium Level 9.6 mg/dL (8.5-10.1) 8.5 mg/dL (8.5-10.1) Magnesium Level 2.0 mg/dL (1.8-2.4) Total Bilirubin 0.7 mg/dL (0.2-1.0) Aspartate Amino Transf (AST/SGOT) 26 U/L (15-37) Alanine Aminotransferase (ALT/SGPT) 28 U/L (14-59) Alkaline Phosphatase 72 U/L (46-116) EV-Cal-K-Type Natriuretic Peptide 1629 pg/mL (0-449) Total Protein 9.0 g/dL (6.4-8.2) Albumin 3.8 g/dL (3.4-5.0) Albumin/Globulin Ratio 0.7 (1.0-1.7) Nasal Screen MRSA (PCR) Negative (Negative) Urine Collection Type Unknown Urine Color Yellow Urine Clarity Clear Urine pH 7.0 Urine Specific [place]erna 1.010 Urine Protein 30 mg/dL (NEG-TRACE) Urine Glucose (UA) 100 mg/dL (NEG) Urine Ketones (Stick) Negative mg/dL (NEG) Urine Blood Negative (NEG) Urine Nitrite Negative (NEG) Urine Bilirubin Negative (NEG) Urine Urobilinogen Dipstick 0.2 mg/dL (0.2 mg/dL) Urine Leukocyte Esterase Trace (NEG) Urine RBC 0 /HPF (0-2) Urine WBC 1-4 /HPF (0-4) Urine Squamous Epithelial Cells Occ /LPF Urine Bacteria 0 /HPF (0-FEW) Urine Mucus Slight /LPF Triglycerides Level 70 mg/dL (0-150) Cholesterol Level 136 mg/dL (0-200) LDL Cholesterol, Calculated 62 mg/dL (0-100) VLDL Cholesterol, Calculated 14 mg/dL (0-40) Non-HDL Cholesterol Calculated 76 mg/dL (0-129) HDL Cholesterol 60 mg/dL (40-60) Cholesterol/HDL Ratio 2.3 Thyroid Stimulating Hormone (TSH) 14.283 uIU/mL (0.358-3.74) Test 09/18/16 08:25 Glucose (Fingerstick) 134 mg/dL (70-99) Laboratory Tests Test 09/17/16 15:05 09/17/16 16:00 09/17/16 23:51 09/18/16 05:30 White Blood Count 7.5 x10^3/uL (4.0-11.0) 6.3 x10^3/uL (4.0-11.0) Red Blood Count 3.92 x10^6/uL (3.50-5.40) 3.63 x10^6/uL (3.50-5.40) Hemoglobin 13.6 g/dL (12.0-15.5) 12.4 g/dL (12.0-15.5) Hematocrit 39.9 % (36.0-47.0) 37.4 % (36.0-47.0) Mean Corpuscular Volume 102 fL (79-100) 103 fL (79-100) Mean Corpuscular Hemoglobin 35 pg (25-35) 34 pg (25-35) Mean Corpuscular Hemoglobin Concent 34 g/dL (31-37) 33 g/dL (31-37) Red Cell Distribution Width 13.0 % (11.5-14.5) 13.4 % (11.5-14.5) Platelet Count 452 x10^3/uL (140-400) 432 x10^3/uL (140-400) Neutrophils (%) (Auto) 73 % (31-73) 59 % (31-73) Lymphocytes (%) (Auto) 17 % (24-48) 29 % (24-48) Monocytes (%) (Auto) 6 % (0-9) 7 % (0-9) Eosinophils (%) (Auto) 3 % (0-3) 4 % (0-3) Basophils (%) (Auto) 1 % (0-3) 1 % (0-3) Neutrophils # (Auto) 5.5 x10^3uL (1.8-7.7) 3.7 x10^3uL (1.8-7.7) Lymphocytes # (Auto) 1.3 x10^3/uL (1.0-4.8) 1.8 x10^3/uL (1.0-4.8) Monocytes # (Auto) 0.4 x10^3/uL (0.0-1.1) 0.4 x10^3/uL (0.0-1.1) Eosinophils # (Auto) 0.2 x10^3/uL (0.0-0.7) 0.3 x10^3/uL (0.0-0.7) Basophils # (Auto) 0.1 x10^3/uL (0.0-0.2) 0.0 x10^3/uL (0.0-0.2) Sodium Level 144 mmol/L (136-145) 142 mmol/L (136-145) Potassium Level 3.4 mmol/L (3.5-5.1) 3.7 mmol/L (3.5-5.1) Chloride Level 105 mmol/L (98-107) 107 mmol/L (98-107) Carbon Dioxide Level 26 mmol/L (21-32) 26 mmol/L (21-32) Anion Gap 13 (6-14) 9 (6-14) Blood Urea Nitrogen 20 mg/dL (7-20) 16 mg/dL (7-20) Creatinine 1.4 mg/dL (0.6-1.0) 1.2 mg/dL (0.6-1.0) Estimated GFR (Cockcroft-Gault) 43.6 52.0 BUN/Creatinine Ratio 14 (6-20) Glucose Level 122 mg/dL (70-99) 146 mg/dL (70-99) Calcium Level 9.6 mg/dL (8.5-10.1) 8.5 mg/dL (8.5-10.1) Magnesium Level 2.0 mg/dL (1.8-2.4) Total Bilirubin 0.7 mg/dL (0.2-1.0) Aspartate Amino Transf (AST/SGOT) 26 U/L (15-37) Alanine Aminotransferase (ALT/SGPT) 28 U/L (14-59) Alkaline Phosphatase 72 U/L (46-116) OB-Bja-Y-Type Natriuretic Peptide 1629 pg/mL (0-449) Total Protein 9.0 g/dL (6.4-8.2) Albumin 3.8 g/dL (3.4-5.0) Albumin/Globulin Ratio 0.7 (1.0-1.7) Nasal Screen MRSA (PCR) Negative (Negative) Urine Collection Type Unknown Urine Color Yellow Urine Clarity Clear Urine pH 7.0 Urine Specific Merna 1.010 Urine Protein 30 mg/dL (NEG-TRACE) Urine Glucose (UA) 100 mg/dL (NEG) Urine Ketones (Stick) Negative mg/dL (NEG) Urine Blood Negative (NEG) Urine Nitrite Negative (NEG) Urine Bilirubin Negative (NEG) Urine Urobilinogen Dipstick 0.2 mg/dL (0.2 mg/dL) Urine Leukocyte Esterase Trace (NEG) Urine RBC 0 /HPF (0-2) Urine WBC 1-4 /HPF (0-4) Urine Squamous Epithelial Cells Occ /LPF Urine Bacteria 0 /HPF (0-FEW) Urine Mucus Slight /LPF Triglycerides Level 70 mg/dL (0-150) Cholesterol Level 136 mg/dL (0-200) LDL Cholesterol, Calculated 62 mg/dL (0-100) VLDL Cholesterol, Calculated 14 mg/dL (0-40) Non-HDL Cholesterol Calculated 76 mg/dL (0-129) HDL Cholesterol 60 mg/dL (40-60) Cholesterol/HDL Ratio 2.3 Thyroid Stimulating Hormone (TSH) 14.283 uIU/mL (0.358-3.74) Test 09/18/16 08:25 Glucose (Fingerstick) 134 mg/dL (70-99) Assessment/Plan Assessment/Plan IMP MALIGNANT HTN NON COMPLIANCE HTN RELATED ENCEPHALOPATHY CKD STAGE 3 WITH CR ABOUT 1.5 HYPOKALEMIA PLAN REPLACE K CARDENE GTT RESUME ORAL MEDS ENC COMPLIANCE WILL FOLLOW NEIL CHAN MD September 18, 2016 11:34
--- NOTE | 2016-09-18 13:00 | PDOC ---
CARDIO Progress Notes Date and Time Date of Service 09/18/2016 Time of Evaluation 1256 Subjective Subjective: No Chest Pain, No shortness of breath, No Palpitations, No Dizziness Vitals Vitals Vital Signs Date Time Temp Pulse Resp B/P (MAP) Pulse Ox O2 Delivery O2 Flow Rate FiO2 09/18/16 12:00 98.0 67 20 120/57 (78) 92 Room Air 98.0 09/18/16 06:00 2.0 Weight Weight [ ] Input and Output Intake and Output Intake and Output 09/18/16 07:00 Intake Total 700 ml Output Total 277 ml Balance 423 ml Intake Oral 700 ml Output Urine Total 277 ml # Voids 2 Laboratory Labs Laboratory Tests Test 09/17/16 15:05 09/17/16 16:00 09/17/16 23:51 09/18/16 05:30 White Blood Count 7.5 x10^3/uL (4.0-11.0) 6.3 x10^3/uL (4.0-11.0) Red Blood Count 3.92 x10^6/uL (3.50-5.40) 3.63 x10^6/uL (3.50-5.40) Hemoglobin 13.6 g/dL (12.0-15.5) 12.4 g/dL (12.0-15.5) Hematocrit 39.9 % (36.0-47.0) 37.4 % (36.0-47.0) Mean Corpuscular Volume 102 fL (79-100) 103 fL (79-100) Mean Corpuscular Hemoglobin 35 pg (25-35) 34 pg (25-35) Mean Corpuscular Hemoglobin Concent 34 g/dL (31-37) 33 g/dL (31-37) Red Cell Distribution Width 13.0 % (11.5-14.5) 13.4 % (11.5-14.5) Platelet Count 452 x10^3/uL (140-400) 432 x10^3/uL (140-400) Neutrophils (%) (Auto) 73 % (31-73) 59 % (31-73) Lymphocytes (%) (Auto) 17 % (24-48) 29 % (24-48) Monocytes (%) (Auto) 6 % (0-9) 7 % (0-9) Eosinophils (%) (Auto) 3 % (0-3) 4 % (0-3) Basophils (%) (Auto) 1 % (0-3) 1 % (0-3) Neutrophils # (Auto) 5.5 x10^3uL (1.8-7.7) 3.7 x10^3uL (1.8-7.7) Lymphocytes # (Auto) 1.3 x10^3/uL (1.0-4.8) 1.8 x10^3/uL (1.0-4.8) Monocytes # (Auto) 0.4 x10^3/uL (0.0-1.1) 0.4 x10^3/uL (0.0-1.1) Eosinophils # (Auto) 0.2 x10^3/uL (0.0-0.7) 0.3 x10^3/uL (0.0-0.7) Basophils # (Auto) 0.1 x10^3/uL (0.0-0.2) 0.0 x10^3/uL (0.0-0.2) Sodium Level 144 mmol/L (136-145) 142 mmol/L (136-145) Potassium Level 3.4 mmol/L (3.5-5.1) 3.7 mmol/L (3.5-5.1) Chloride Level 105 mmol/L (98-107) 107 mmol/L (98-107) Carbon Dioxide Level 26 mmol/L (21-32) 26 mmol/L (21-32) Anion Gap 13 (6-14) 9 (6-14) Blood Urea Nitrogen 20 mg/dL (7-20) 16 mg/dL (7-20) Creatinine 1.4 mg/dL (0.6-1.0) 1.2 mg/dL (0.6-1.0) Estimated GFR (Cockcroft-Gault) 43.6 52.0 BUN/Creatinine Ratio 14 (6-20) Glucose Level 122 mg/dL (70-99) 146 mg/dL (70-99) Calcium Level 9.6 mg/dL (8.5-10.1) 8.5 mg/dL (8.5-10.1) Magnesium Level 2.0 mg/dL (1.8-2.4) Total Bilirubin 0.7 mg/dL (0.2-1.0) Aspartate Amino Transf (AST/SGOT) 26 U/L (15-37) Alanine Aminotransferase (ALT/SGPT) 28 U/L (14-59) Alkaline Phosphatase 72 U/L (46-116) MH-Dqg-O-Type Natriuretic Peptide 1629 pg/mL (0-449) Total Protein 9.0 g/dL (6.4-8.2) Albumin 3.8 g/dL (3.4-5.0) Albumin/Globulin Ratio 0.7 (1.0-1.7) Nasal Screen MRSA (PCR) Negative (Negative) Urine Collection Type Unknown Urine Color Yellow Urine Clarity Clear Urine pH 7.0 Urine Specific [place] 1.010 Urine Protein 30 mg/dL (NEG-TRACE) Urine Glucose (UA) 100 mg/dL (NEG) Urine Ketones (Stick) Negative mg/dL (NEG) Urine Blood Negative (NEG) Urine Nitrite Negative (NEG) Urine Bilirubin Negative (NEG) Urine Urobilinogen Dipstick 0.2 mg/dL (0.2 mg/dL) Urine Leukocyte Esterase Trace (NEG) Urine RBC 0 /HPF (0-2) Urine WBC 1-4 /HPF (0-4) Urine Squamous Epithelial Cells Occ /LPF Urine Bacteria 0 /HPF (0-FEW) Urine Mucus Slight /LPF Triglycerides Level 70 mg/dL (0-150) Cholesterol Level 136 mg/dL (0-200) LDL Cholesterol, Calculated 62 mg/dL (0-100) VLDL Cholesterol, Calculated 14 mg/dL (0-40) Non-HDL Cholesterol Calculated 76 mg/dL (0-129) HDL Cholesterol 60 mg/dL (40-60) Cholesterol/HDL Ratio 2.3 Thyroid Stimulating Hormone (TSH) 14.283 uIU/mL (0.358-3.74) Test 09/18/16 08:25 09/18/16 11:56 Glucose (Fingerstick) 134 mg/dL (70-99) 81 mg/dL (70-99) Physical Exam HEENT: Neck Supple W Full Motion Chest: Symmetric LUNGS: Clear to Auscultation Heart: S1S2, RRR, no murmurs Abdomen: Soft N/T Extremities: No Edema Neurology: alert, oriented, follow commands Diagnostic Tests Echocardiogram: Normal LVEF (with mild to moderate concentric hypertrophy), Normal Valves Assessment Assessment 1. malignant HTN has not taken meds regularly weaned off nicardipine after resumption of home meds echo with preserved LV function and LVH 2. hypokalemia resolved 3. chronic diastolic HF NT-pro BNP mildly elevated though not diagnostic based on age likely related to uncontrolled HTN 4. DM, II per primary service 5. COPD per primary service 6. elevated TSH defer to primary service Will follow peripherally Please contact for further assistance f/u with cardiology in 4 weeks BREN RAO [employer] September 18, 2016 13:00
[2016-09-19 03:00] VITALS: BP 157/69
[2016-09-19 04:01] LABS: CALCIUM 8.5 mg/dL (8.5-10.1); CREATININE 1.9 mg/dL (0.6-1.0); GFR 30.6; POTASSIUM 3.7 mmol/L (3.5-5.1)
[2016-09-19] MEDS: LEVOTHYROXINE 100 MCG TABLET PO SCH (06:25)
[2016-09-19] MEDS: PANTOPRAZOLE 40 MG TABLET.DR. PO SCH (07:44)
[2016-09-19] MEDS: REPAGLINIDE 0.5 MG TABLET PO SCH ×2 (07:44→11:30)
[2016-09-19] MEDS: INSULIN ASPART 300 UNITS/3 ML INSULN.PEN SQ SCH ×2 (07:45→12:00)
[2016-09-19 08:00] VITALS: BP 165/62
[2016-09-19] MEDS: POLYETHYLENE GLYCOL 3350 17 GM PACKET. PO SCH (09:00)
[2016-09-19] MEDS: LINAGLIPTIN 5 MG TABLET PO SCH (09:00)
[2016-09-19 10:00] VITALS: BP 148/60
[2016-09-19] MEDS: FUROSEMIDE 40 MG TABLET. PO SCH (10:23)
[2016-09-19] MEDS: METOPROLOL TART IMMED RELEASE 50 MG TABLET. PO SCH (10:23)
[2016-09-19] MEDS: POTASSIUM CHLORIDE 20 MEQ TABLET.ER. PO SCH (10:24)
[2016-09-19] MEDS: LOSARTAN POTASSIUM 50 MG TABLET. PO SCH (10:25)
[2016-09-19] MEDS: ASPIRIN CHEWABLE 81 MG TABLET. PO SCH (10:25)
[2016-09-19] MEDS: amLODIPine BESYLATE 10 MG TABLET PO SCH (10:26)
--- NOTE | 2016-09-19 10:36 | PDOC ---
PROGRESS NOTES Subjective Subjective feels better ,anxious to go home Objective Objective Vital Signs Date Time Temp Pulse Resp B/P (MAP) Pulse Ox O2 Delivery O2 Flow Rate FiO2 09/19/16 10:26 67 165/62 09/19/16 08:00 Nasal Cannula 2.0 09/19/16 08:00 98.5 20 97 98.5 Intake and Output 09/19/16 07:00 Intake Total 320 ml Output Total 801 ml Balance -481 ml Intake Oral 320 ml Output Urine Total 801 ml # Bowel Movements 1 Physical Exam Abdomen: Normal bowel sounds, Soft, No tenderness Heart: Regular rate Extremities: No clubbing General: Cooperative, No acute distress HEENT: Atraumatic, PERRLA Lungs: Clear to auscultation, Normal air movement MUSCULOSKELETAL: No deformity Neuro: Other (CONFUSED) Psych/Mental Status: Other (CONFUSED) Skin: No breakdown Assessment Assessment FINAL IMPRESSION: 1. Malignant hypertension. 2. Uncontrolled hypertension. 3. Diabetes. 4. Hypertension. 5. Hypothyroidism. 6. Essential thrombocytosis. 7. History of diverticulosis. PLAN: ECHO good LVF. cr 1.9 stable, CRI. d/c home today Off cardine drip. resumed home meds. Ct head -ve.atrophy. cxr cardiomegaly+mild effusions ekg -ve for ischemia. cardiology + renal consult. labs cr 1.2 .tsh 14-not taking synthroid regularly. At this time, admit to hospital. Control blood pressure with Cardene drip. Cardiology was consulted. Renal was consulted and DVT prophylaxis. Further recommendations to follow. Problems: Comment Review of Relevant I have reviewed the following items ev (where applicable) has been applied. Labs Laboratory Tests Test 09/18/16 11:56 09/18/16 17:18 09/18/16 22:21 09/19/16 03:15 Glucose (Fingerstick) 81 mg/dL (70-99) 84 mg/dL (70-99) 138 mg/dL (70-99) Sodium Level 141 mmol/L (136-145) Potassium Level 3.7 mmol/L (3.5-5.1) Chloride Level 105 mmol/L (98-107) Carbon Dioxide Level 26 mmol/L (21-32) Anion Gap 10 (6-14) Blood Urea Nitrogen 27 mg/dL (7-20) Creatinine 1.9 mg/dL (0.6-1.0) Estimated GFR (Cockcroft-Gault) 30.6 Glucose Level 139 mg/dL (70-99) Calcium Level 8.5 mg/dL (8.5-10.1) Medications Current Medications Losartan Potassium (Cozaar) 50 mg DAILYWLUN PO Last administered on 09/19/16t 10:25; Start 09/18/16 at 12:00 Non-Formulary Medication 70 mg WEEKLY PO ; Start 09/24/16 at 09:00; Status UNV Vitals/I & O Vital Sign - Last 24 Hours 09/18/16 09/18/16 09/18/16 09/18/16 12:00 16:00 19:00 20:00 Temp 98.0 98.2 98.5 98.0 98.2 98.5 Pulse 67 72 77 Resp 20 16 20 B/P (MAP) 120/57 (78) 140/60 (86) 150/54 (86) Pulse Ox 92 97 94 O2 Delivery Room Air Room Air Room Air Room Air 09/18/16 09/18/16 09/19/16 09/19/16 21:17 23:00 03:00 08:00 Temp 98.1 98.2 98.5 98.1 98.2 98.5 Pulse 78 63 68 67 Resp 16 19 20 B/P (MAP) 153/50 153/50 (84) 157/69 (98) 165/62 (96) Pulse Ox 93 95 97 O2 Delivery Room Air Room Air Nasal Cannula O2 Flow Rate 2.0 09/19/16 09/19/16 09/19/16 09/19/16 08:00 10:23 10:24 10:25 Pulse 67 67 67 B/P (MAP) 165/62 165/62 165/62 O2 Delivery Nasal Cannula O2 Flow Rate 2.0 09/19/16 10:26 Pulse 67 B/P (MAP) 165/62 Intake and Output 09/18/16 09/18/16 09/19/16 15:00 23:00 07:00 Intake Total 320 ml Output Total 301 ml 500 ml Balance -301 ml -180 ml SAMMI DE PAZ MD September 19, 2016 10:36
--- NOTE | 2016-09-19 11:23 | PDOC ---
Renal-Progress Notes Subjective Notes Notes NO CHANGE History of Present Illness Hx of present illness STABLE Vitals Vitals Vital Signs Date Time Temp Pulse Resp B/P (MAP) Pulse Ox O2 Delivery O2 Flow Rate FiO2 09/19/16 10:26 67 165/62 09/19/16 08:00 Nasal Cannula 2.0 09/19/16 08:00 98.5 20 97 98.5 Weight Weight [ ] I.O. Intake and Output Intake and Output 09/19/16 06:59 Intake Total 320 ml Output Total 551 ml Balance -231 ml Intake Oral 320 ml Output Urine Total 551 ml Labs Labs Laboratory Tests Test 09/18/16 11:56 09/18/16 17:18 09/18/16 22:21 09/19/16 03:15 Glucose (Fingerstick) 81 mg/dL (70-99) 84 mg/dL (70-99) 138 mg/dL (70-99) Sodium Level 141 mmol/L (136-145) Potassium Level 3.7 mmol/L (3.5-5.1) Chloride Level 105 mmol/L (98-107) Carbon Dioxide Level 26 mmol/L (21-32) Anion Gap 10 (6-14) Blood Urea Nitrogen 27 mg/dL (7-20) Creatinine 1.9 mg/dL (0.6-1.0) Estimated GFR (Cockcroft-Gault) 30.6 Glucose Level 139 mg/dL (70-99) Calcium Level 8.5 mg/dL (8.5-10.1) Review of Systems Constitutional: yes: no symptom reported Ears/Nose/Throat: Yes: no symptom reported Pulmonary: Yes no symptom reported Gastrointestional: Yes: no symptom reported Musculoskeletal: Yes: no symptom reported Psychiatric/Neurological: Yes: no symptom reported Physical Exam General Appearance: no apparent distress Skin: warm Respiratory: bilateral CTA Heart: S1S2, RRR Abdomen: soft, bowel sounds present Genitourinary: bladder flat Neurology: alert, oriented, follow commands Musculoskeletal: Osteoarthritis Assessment Assessment IMP MALIGNANT HTN-CONTROLLED CKD STAGE 3 CR IN BASELINE RANGE PLAN D/W DR DE PAZ PT TO BE DISCHARGED TODAY SHE WILL F/U WITH NEIL LUTZ MD September 19, 2016 11:23
[2016-09-19 12:00] VITALS: BP 159/61
[2016-09-24] MEDS ORDERED: NON FORMULARY ITEM (Alendronate Sodium (Fosamax) 70 MG) PO SCH (09:00)
== END 2016-09-19 13:30 | disposition home health service (06) | DRG 292 ==
LOC: 1 WEST ICU 14:35
PROVIDERS: ADMIT Internal Medicine; ATTEND Internal Medicine
DX: I13.0 Hypertensive heart and chronic kidney disease with heart failure and stage 1 through stage 4 chronic kidney disease, or unspecified chronic kidney disease (principal); I67.4 Hypertensive encephalopathy; I50.32 Chronic diastolic (congestive) heart failure; N18.3 Chronic kidney disease, stage 3 (moderate); D47.3 Essential (hemorrhagic) thrombocythemia; E03.9 Hypothyroidism, unspecified; E11.22 Type 2 diabetes mellitus with diabetic chronic kidney disease; E78.5 Hyperlipidemia, unspecified; E87.6 Hypokalemia; H40.10X0 Unspecified open-angle glaucoma, stage unspecified; J44.9 Chronic obstructive pulmonary disease, unspecified; K21.9 Gastro-esophageal reflux disease without esophagitis; M81.0 Age-related osteoporosis without current pathological fracture; E21.3 Hyperparathyroidism, unspecified; F41.9 Anxiety disorder, unspecified; E11.42 Type 2 diabetes mellitus with diabetic polyneuropathy; K59.00 Constipation, unspecified; H26.9 Unspecified cataract; M19.90 Unspecified osteoarthritis, unspecified site; Z91.19 Patient's noncompliance with other medical treatment and regimen; Z88.0 Allergy status to penicillin; Z88.2 Allergy status to sulfonamides; Z88.8 Allergy status to other drugs, medicaments and biological substances; Z90.49 Acquired absence of other specified parts of digestive tract; Z90.710 Acquired absence of both cervix and uterus; Z80.0 Family history of malignant neoplasm of digestive organs; Z83.3 Family history of diabetes mellitus
CPT/HCPCS: 36415; 70450; 71010; 80048; 80053; 80061; 81001; 82947; 83036; 83735; 83880; 84443; 85027; 87086; 87641; 93005; 93306; 94250; 94640; J0360; J7050; J7030

== ENCOUNTER 2016-10-11 09:47 | Inpatient (IN) | payer MEDICARE, OTHER ==
[~2016-10-11] VITALS: Ht 149.9 cm; Wt 71.4 kg
[~2016-10-11 09:47] MED LIST changes: +CHOL100013 PO; +NATE60TA2 PO; +POTA20TA4 PO; +TRAM50TA PO
[2016-10-11] MEDS ORDERED: IPRATRPIUM/ALBUTEROL 0.5/2.5MG 3 ML NEBU. NEB ONE (10:15)
[2016-10-11 10:17] LABS: BASO # 0.1 x10^3/uL (0.0-0.2); BASO % 1 % (0-3); EOS % 2 % (0-3); HEMOGLOBIN 12.4 g/dL (12.0-15.5); LYMPH # 1.3 x10^3/uL (1.0-4.8); LYMPH % 11 % (24-48); MEAN CORPUSCULAR HEMOGLOBIN 34 pg (25-35); MEAN CORPUSCULAR HGB CONC 35 g/dL (31-37); MEAN CORPUSCULAR VOLUME 98 fL (79-100); MONO % 5 % (0-9); NEUT % 81 % (31-73); PLATELET COUNT 462 x10^3/uL (140-400); RED BLOOD COUNT 3.68 x10^6/uL (3.50-5.40); RED CELL DISTRIBUTION WIDTH 12.9 % (11.5-14.5); WHITE BLOOD COUNT 11.6 x10^3/uL (4.0-11.0)
--- NOTE | 2016-10-11 10:18 | PHYS DOC ---
Past Medical History Past Medical History: Diabetes-Type II, Hypertension, UTI Additional Past Medical Histor: osteoarthritis, enlarged heart Past Surgical History: Appendectomy, Hysterectomy Alcohol Use: None Drug Use: None Adult General Chief Complaint Chief Complaint: SHORTNESS OF BREATH HPI HPI Patient is a 81 year old female with history of hypertension, diabetes type 2, new diagnosis for CHF currently on Lasix 40 mg who presents today with shortness of breath that began last night. Patient states she's also had a slight cough for a day. Patient denies any fever. Denies any congestion. Denies any chest pain. PCP Dr. De Paz Review of Systems Review of Systems Constitutional: See history of present illness Eyes: Denies change in visual acuity, redness, or eye pain [] HENT: Denies nasal congestion or sore throat [] Respiratory: cough and shortness of breath [] Cardiovascular: No additional information not addressed in HPI [] GI: Denies abdominal pain, nausea, vomiting, bloody stools or diarrhea [] : Denies dysuria or hematuria [] Musculoskeletal: Denies back pain or joint pain [] Integument: Denies rash or skin lesions [] Neurologic: Denies headache, focal weakness or sensory changes [] Endocrine: Denies polyuria or polydipsia [] Current Medications Current Medications Current Medications Medications (Trade) Dose Ordered Sig/Alexsander Start Time Stop Time Status Last Admin Dose Admin Albuterol/ Ipratropium (Duoneb) 3 ml 1X ONCE 10/11/16 10:15 10/11/16 10:16 DC 10/11/16 10:34 3 ML Amlodipine Besylate (Norvasc) 10 mg 1X ONCE 10/11/16 11:00 10/11/16 11:01 DC 10/11/16 11:10 10 MG Furosemide (Lasix) 40 mg 1X ONCE 10/11/16 11:00 10/11/16 11:01 DC 10/11/16 11:11 40 MG Metoprolol Tartrate (Lopressor) 50 mg 1X ONCE 10/11/16 11:00 10/11/16 11:01 DC 10/11/16 11:07 50 MG Allergies Allergies Allergies Coded Allergies Type Severity Reaction Last Updated Verified Penicillins Allergy Severe Rash 02/13/16 Yes levofloxacin Allergy Severe GI upset 02/13/16 Yes sulfamethoxazole Allergy Severe GI Upset 02/13/16 Yes trimethoprim Allergy Severe Swelling 02/13/16 Yes Physical Exam Physical Exam Constitutional: Well developed, well nourished, no acute distress, non-toxic appearance. [] HENT: Normocephalic, atraumatic, bilateral external ears normal, oropharynx moist, no oral exudates, nose normal. [] Eyes: PERRLA, EOMI, conjunctiva normal, no discharge. [] Neck: Normal range of motion, no tenderness, supple, no stridor. [] Cardiovascular:Heart rate regular rhythm, no murmur [] Lungs & Thorax: Bilateral breath sounds clear to auscultation though patient appears short of breath currently on oxygen 2 liters. Abdomen: Bowel sounds normal, soft, no tenderness, no masses, no pulsatile masses. [] Skin: Warm, dry, no erythema, no rash. [] Back: No tenderness, no CVA tenderness. [] Extremities: No tenderness, no cyanosis, no clubbing, ROM intact, no edema. [] Neurologic: Alert and oriented X 3, normal motor function, normal sensory function, no focal deficits noted. [] Psychologic: Affect normal, judgement normal, mood normal. [] Current Patient Data Vital Signs Vital Signs Date Time Temp Pulse Resp B/P (MAP) Pulse Ox O2 Delivery O2 Flow Rate FiO2 10/11/16 11:10 77 200/75 10/11/16 11:06 24 97 Nasal Cannula 2.0 10/11/16 09:47 99.1 99.1 Lab Values Laboratory Tests Test 10/11/16 10:00 10/11/16 10:05 O2 Saturation 94 % (92-99) Arterial Blood pH 7.43 (7.35-7.45) Arterial Blood pCO2 at Patient Temp 32 mmHg (35-46) L Arterial Blood pO2 at Patient Temp 76 mmHg (65-108) Arterial Blood HCO3 21 mmol/L (21-28) Arterial Blood Base Excess -3 mmol/L (-3-3) Oxyhemoglobin 92.9 % Methemoglobin 0.4 % (0.0-1.9) Carbon Monoxide, Quantitative 0.5 % (0.0-1.9) FiO2 28 White Blood Count 11.6 x10^3/uL (4.0-11.0) H Red Blood Count 3.68 x10^6/uL (3.50-5.40) Hemoglobin 12.4 g/dL (12.0-15.5) Hematocrit 36.0 % (36.0-47.0) Mean Corpuscular Volume 98 fL (79-100) Mean Corpuscular Hemoglobin 34 pg (25-35) Mean Corpuscular Hemoglobin Concent 35 g/dL (31-37) Red Cell Distribution Width 12.9 % (11.5-14.5) Platelet Count 462 x10^3/uL (140-400) H Neutrophils (%) (Auto) 81 % (31-73) H Lymphocytes (%) (Auto) 11 % (24-48) L Monocytes (%) (Auto) 5 % (0-9) Eosinophils (%) (Auto) 2 % (0-3) Basophils (%) (Auto) 1 % (0-3) Neutrophils # (Auto) 9.5 x10^3uL (1.8-7.7) H Lymphocytes # (Auto) 1.3 x10^3/uL (1.0-4.8) Monocytes # (Auto) 0.6 x10^3/uL (0.0-1.1) Eosinophils # (Auto) 0.3 x10^3/uL (0.0-0.7) Basophils # (Auto) 0.1 x10^3/uL (0.0-0.2) Prothrombin Time 13.4 SEC (11.7-14.0) Prothrombin Time INR 1.1 (0.8-1.1) D-Dimer (Teressa) 3.81 ug/mlFEU (0.00-0.50) H Sodium Level 145 mmol/L (136-145) Potassium Level 3.9 mmol/L (3.5-5.1) Chloride Level 107 mmol/L (98-107) Carbon Dioxide Level 23 mmol/L (21-32) Anion Gap 15 (6-14) H Blood Urea Nitrogen 35 mg/dL (7-20) H Creatinine 1.4 mg/dL (0.6-1.0) H Estimated GFR (Cockcroft-Gault) 43.5 Glucose Level 158 mg/dL (70-99) H Calcium Level 9.7 mg/dL (8.5-10.1) Magnesium Level 2.0 mg/dL (1.8-2.4) Creatine Kinase 82 U/L (26-192) Creatine Kinase MB (Mass) 0.6 ng/mL (0.0-3.6) Creatine Kinase MB Relative Index 0.7 % (0-4) Troponin I Quantitative 0.081 ng/mL (0.000-0.055) GG-Lin-K-Type Natriuretic Peptide 3100 pg/mL (0-449) H Laboratory Tests 10/11/16 10:05 Laboratory Tests 10/11/16 10:05 EKG EKG [] Radiology/Procedures Radiology/Procedures []PROCEDURE: PORTABLE CHEST 1V Indication shortness of breath. A single view of the chest was obtained and is compared to a study 09/17/2016. There is unchanged cardiomegaly. There are mild changes of congestive heart failure. Bilateral pleural effusions persist and appear minimally larger than on the previous exam. No consolidated pneumonia is seen. IMPRESSION: Stable mild cardiomegaly. Mild congestive heart failure. Small bilateral pleural effusions. Pleural effusions do appear slightly larger than on the previous study DICTATED and SIGNED BY: OLGA LIDIA CHANEL MD DATE: 10/11/16 1036 CC: NERIS DE PAZ MD; KATARZYNA HAWK APRN ~ Course & Med Decision Making Course & Med Decision Making Pertinent Labs and Imaging studies reviewed. (See chart for details) This is a 81-year-old female patient who presents today with shortness of breath and a cough that began last night. Patient has a new diagnosis for CHF and is currently on Lasix 40 mg. CBC with WBC of 11.6, CMP with creatinine of 1.4, BUN 35, BNP 3100, troponin 0.018, 09:[address] Batista sinus rhythm, heart rate 86, QRS interval 90, no STEMI Patient was also placed on oxygen 2 L on arrival to the ED because her oxygen saturation was 91%. She has history of asthma she was given a breathing treatment in the ED. Her breathing improved. O2 sats came up to 95% on 2 L of oxygen. Her blood pressure was 201/89, with a heart rate of 80s on arrival to the ED. She has not taken any of her morning blood pressure medicines. I went ahead and ordered the medications for her including metoprolol, amlodipine, furosemide. Chest x-ray interpreted by radiologist was noted for stable cardiomegaly, mild CHF, increased bilateral pleural effusion. 11:11 Consulted with Clover from cardiology. 11:[address] De Paz who accepted patient for admission. She was admitted in stable condition Dragon Disclaimer Dragon Disclaimer This electronic medical record was generated, in whole or in part, using a voice recognition dictation system. Departure Departure Impression: Primary Impression: Shortness of breath Additional Impressions: Acute renal failure CHF (congestive heart failure) Pleural effusion on right Pleural effusion on left Accelerated hypertension Disposition: ADMITTED INPATIENT Admitting Physician: Neris De Paz Condition: STABLE Referrals: NERIS DE PAZ MD (PCP) Problem Qualifiers Additional Impressions: Acute renal failure Acute renal failure type: unspecified Qualified Codes: N17.9 - Acute kidney failure, unspecified CHF (congestive heart failure) Congestive heart failure type: unspecified congestive heart failure type Congestive heart failure chronicity: acute Qualified Codes: I50.9 - Heart failure, unspecified KATARZYNA HAWK MOTOR VEHICLE CLERK Oct 11, 2016 10:18
[2016-10-11 10:28] LABS: INR 1.1 (0.8-1.1); PROTHROMBIN TIME PATIENT 13.4 SEC (11.7-14.0)
[2016-10-11 10:30] LABS: CALCIUM 9.7 mg/dL (8.5-10.1); CREATININE 1.4 mg/dL (0.6-1.0); GFR 43.5; POTASSIUM 3.9 mmol/L (3.5-5.1)
[2016-10-11 10:40] LABS: BASE EXCESS COOX -3 mmol/L (-3-3); CARBON MONOXIDE 0.5 % (0.0-1.9); HCO3 COOX 21 mmol/L (21-28); METHEMOGLOBIN 0.4 % (0.0-1.9); OXYHEMOGLOBIN 92.9 %; PCO2 COOX 32 mmHg (35-46); PH COOX 7.43 (7.35-7.45); PO2 COOX 76 mmHg (65-108); SAT O2 COOX 94 % (92-99); TOTAL HEMOGLOBIN 12.4 g/dL
--- NOTE | 2016-10-11 10:41 | RAD ---
Indication shortness of breath. A single view of the chest was obtained and is compared to a study 09/17/2016. There is unchanged cardiomegaly. There are mild changes of congestive heart failure. Bilateral pleural effusions persist and appear minimally larger than on the previous exam. No consolidated pneumonia is seen. IMPRESSION: Stable mild cardiomegaly. Mild congestive heart failure. Small bilateral pleural effusions. Pleural effusions do appear slightly larger than on the previous study
[2016-10-11 10:43] LABS: CKMB MASS 0.6 ng/mL (0.0-3.6)
[2016-10-11] MEDS ORDERED: OMEP20CA9 PO (10:47)
[2016-10-11] MEDS ORDERED: METOPROLOL TART IMMED RELEASE 50 MG TABLET. PO ONE (11:00)
[2016-10-11] MEDS ORDERED: FUROSEMIDE 40 MG/4 ML VIAL. IVP ONE (11:00)
[2016-10-11] MEDS ORDERED: amLODIPine BESYLATE 5 MG TABLET PO ONE (11:00)
--- NOTE | 2016-10-11 11:21 | EKG ---
[facility] [address] [place] [address] Test Date: 2016-10-11 Test Time: 09:53:47 Pat Name: SHIRA MCQUEEN Department: Room: Gender: F Cruise Staff Member: : [id number] Requested By: KATARZYNA HAWK Order Number: [id number] Reading MD: Mikey Alarcon Measurements Intervals [facility] Rate: 86 P: -36 PA: 118 QRS: 45 QRSD: 90 T: 9 QT: 374 QTc: 451 Interpretive Statements SINUS RHYTHM NON-SPECIFIC ST/T CHANGES Electronically Signed On 10-14-2016 12:57:45 CDT by Mikey Alarcon
[2016-10-11 11:44] LABS: BILIRUBIN,URINE NEGATIVE (NEG); GLUCOSE,URINE NEGATIVE (NEG); NITRITE,URINE NEGATIVE (NEG); PH,URINE 5.5; PROTEIN,URINE 100 mg/dL (NEG-TRACE); UROBILINOGEN,URINE 0.2 mg/dL (0.2 mg/dL)
[2016-10-11] MEDS ORDERED: MORPHINE SULFATE 2 MG/ML DISP.SYRIN. IV PRN (11:45)
[2016-10-11] MEDS ORDERED: ACETAMINOPHEN 325 MG TABLET. PO PRN (11:45)
[2016-10-11] MEDS ORDERED: ONDANSETRON PF 4 MG/2 ML VIAL. IV PRN (11:45)
[2016-10-11 11:51] LABS: BARBITURATES NEG (NEG); BENZODIAZEPINES NEG (NEG); CANNABINOIDS NEG (NEG); COCAINE NEG (NEG); METHADONE NEG (NEG); OPIATES NEG (NEG); PHENCYCLIDINE NEG (NEG)
[2016-10-11 11:59] LABS: BACTERIA,URINE 0 /HPF (0-FEW); RBC,URINE OCC /HPF (0-2); SQUAMOUS EPITHELIAL CELL,UR OCC /LPF
[2016-10-11 12:09] LABS: FIO2 COOX 28
[2016-10-11 12:20] VITALS: BP 191/72
[2016-10-11] MEDS: IPRATRPIUM/ALBUTEROL 0.5/2.5MG 3 ML NEBU. NEB SCH ×3 (12:21→20:38)
--- NOTE | 2016-10-11 12:26 | ACF ---
Admission Forms Criteria HEART FAILURE: COMMON COMPLICATIONS Clinical Indications for Inpatient Care (Place 'X' for any and all applicable criteria): Ongoing inpatient care may be indicated for heart failure with ANY ONE of the following (1)(2)(3)(4)(5): [ ]I. Ongoing need for care for primary condition requiring frequent therapy adjustments because of changes in cardiac function (eg, drug dosage changes for drugs that are renally metabolized) [ ]II. New-onset heart failure [ ]III. Heart failure with decreased urine output not responsive to attempts to optimize volume status [ ]IV. Acute cardiac ischemia causing or associated with failure [X]V. Complications of heart failure, including ANY ONE of the following: [ ]a) Pericardial effusion [ ]b) Symptomatic pleural effusion [ ]c) O2 saturation <90% or PO2 < 60 mm Hg (8.0 kPa) on room air or require baseline supplemental O2 [ ]d) Tachypnea [X]e) Dyspnea [ ]f) Syncope [ ]g) Change in mental status [ ]h) Acute renal insufficiency that is severe (reduction of more than 50% in estimated glomerular filtration rate from baseline) or progressive reduction of more than 25% in estimated glomerular filtration rate from baseline, with creatinine continuing to rise) [ ]i) Hemodynamic instability [ ]j) Anasarca [ ]k) Clinically significant metabolic abnormalities due to heart failure (eg, new-onset metabolic acidosis) Extended stay beyond goal length of stay for primary condition may be needed until ALL of the following are present(1)(3): [ ]a) Stable and effective diuretic regimen established (or patient on stable dialysis regimen if in chronic renal failure) [ ]b) Breathing comfortably at rest [ ]c) Saturation of arterial oxygen greater than 90% or at acceptable baseline [ ]d) Pulmonary edema absent or improved [ ]e) Hemodynamic stability [ ]f) Volume status acceptable on oral medication [ ]g) Peripheral or sacral edema absent or improved [ ]h) Renal function stable and manageable at a lower level of care [ ]i) Complications (eg, pleural effusion) resolved or manageable at a lower level of care [ ]j) Patient or caregiver has received written discharge instructions or educational material addressing activity level, diet, discharge medications, follow-up appointment, weight monitoring, and what to do if symptoms worsen The original [facility] content created by [employer] has been revised. The portions of the content which have been revised are identified through the use of italic text or in bold, and [facility] has neither reviewed nor approved the modified material.All other unmodified content is copyright [facility]. Please see references footnoted in the original [facility] edition 2016 Admission Criteria Met?: Yes SCHUYLER LANG Oct 11, 2016 12:26
--- NOTE | 2016-10-11 14:30 | PDOC2 ---
TL RICHARDSON MELODY 10/11/16 1430: CARDIAC CONSULT DATE OF CONSULT Date of Consult DATE: 10/11/16 TIME: 14:19 REASON FOR CONSULT Reason for Consult: Elevated Troponin REFERRING PHYSICIAN Referring Physician: Lyn Hurley APRN SOURCE Source: Chart review, Patient HISTORY OF PRESENT ILLNESS HISTORY OF PRESENT ILLNESS This is an 81 female who presented with complaints of shortness of breath. Patient reports symptoms have been present for a couple of days but was significantly worse last night. Denies any chest pain, palpitations, dizziness, diaphoresis, or nausea/vomiting. Does report non-productive cough. Reports compliance with medications, although daughter provides that this is not always the case. PAST MEDICAL HISTORY Past Medical History Cardiovascular: CHF (chronic diastolic), HTN, Hyperlipidemia Pulmonary: COPD, Other (recurrent bronchitis), JOSS (noncompliant with home CPAP ) CENTRAL NERVOUS SYSTEM: Periperal neuropathy GI: Constipation, Diverticulosis (2008), GERD, Hemorrhoids, Other (lactose intolerant; h. pylori and antral gastritis - 2010; lipoma of ascending colon - 2010) Heme/Onc: B12 deficiency Hepatobiliary: No pertinent hx Psych: Anxiety Musculoskeletal: Osteoarthritis ENT: Other (chronic open angle glaucoma; bilateral cataracts) Renal/: Chronic renal insuff (stage III) Endocrine: Diabetes, Hypothyroidism, Hyperparathyroidism, Osteoporosis, Other ( vitamin D deficiency) PAST SURGICAL HISTORY Past Surgical History Appendectomy, Cholecystectomy, Hernia Repair (abdominal ), Hysterectomy FAMILY HISTORY Family History Cancer (stomach - father), Diabetes SOCIAL HISTORY Smoke: No ALCOHOL: none Drugs: None Lives: Alone CURRENT MEDICATIONS CURRENT MEDICATIONS Current Medications Medications (Trade) Dose Ordered Sig/Alexsander Route PRN Reason Start Time Stop Time Status Last Admin Dose Admin Albuterol/ Ipratropium (Duoneb) 3 ml 1X ONCE NEB 10/11/16 10:15 10/11/16 10:16 DC 10/11/16 10:34 Furosemide (Lasix) 40 mg 1X ONCE IVP 10/11/16 11:00 10/11/16 11:01 DC 10/11/16 11:11 Amlodipine Besylate (Norvasc) 10 mg 1X ONCE PO 10/11/16 11:00 10/11/16 11:01 DC 10/11/16 11:10 Metoprolol Tartrate (Lopressor) 50 mg 1X ONCE PO 10/11/16 11:00 10/11/16 11:01 DC 10/11/16 11:07 Albuterol/ Ipratropium (Duoneb) 3 ml RTQID NEB 10/11/16 12:00 10/12/16 11:59 10/11/16 12:21 ALLERGIES ALLERGIES: Coded Allergies: Penicillins (Verified Allergy, Severe, Rash, 02/13/16) trimethoprim (Verified Allergy, Severe, Swelling, 02/13/16) levofloxacin (Verified Adverse Reaction, Intermediate, GI upset, 10/11/16) sulfamethoxazole (Verified Adverse Reaction, Intermediate, GI Upset, ) ROS Review of System 14 point ROS conducted with pertinent positives noted above in HPI. PHYSICAL EXAM PHYSICAL EXAM General: Alert, Oriented X3, Cooperative, No acute distress HEENT: Atraumatic, PERRLA Lungs: Clear to auscultation, diminished bases Heart: Regular rate, Normal S1, Normal S2, No murmurs Abdomen: Normal bowel sounds, Soft, No tenderness Extremities: No edema, Normal pulses Skin: No rashes Neuro: Normal speech Psych/Mental Status: Mental status NL, Mood NL MUSCULOSKELETAL: Osteoarthritic changes both hands VITALS VITALS Vital Signs Date Time Temp Pulse Resp B/P (MAP) Pulse Ox O2 Delivery O2 Flow Rate FiO2 10/11/16 12:22 96 Nasal Cannula 2.0 10/11/16 12:20 98.1 71 20 191/72 (111) 98.1 LABS Lab: Laboratory Tests Test 10/11/16 10:00 10/11/16 10:05 10/11/16 11:35 O2 Saturation 94 % (92-99) Arterial Blood pH 7.43 (7.35-7.45) Arterial Blood pCO2 at Patient Temp 32 mmHg (35-46) Arterial Blood pO2 at Patient Temp 76 mmHg (65-108) Arterial Blood HCO3 21 mmol/L (21-28) Arterial Blood Base Excess -3 mmol/L (-3-3) Oxyhemoglobin 92.9 % Methemoglobin 0.4 % (0.0-1.9) Carbon Monoxide, Quantitative 0.5 % (0.0-1.9) FiO2 28 White Blood Count 11.6 x10^3/uL (4.0-11.0) Red Blood Count 3.68 x10^6/uL (3.50-5.40) Hemoglobin 12.4 g/dL (12.0-15.5) Hematocrit 36.0 % (36.0-47.0) Mean Corpuscular Volume 98 fL (79-100) Mean Corpuscular Hemoglobin 34 pg (25-35) Mean Corpuscular Hemoglobin Concent 35 g/dL (31-37) Red Cell Distribution Width 12.9 % (11.5-14.5) Platelet Count 462 x10^3/uL (140-400) Neutrophils (%) (Auto) 81 % (31-73) Lymphocytes (%) (Auto) 11 % (24-48) Monocytes (%) (Auto) 5 % (0-9) Eosinophils (%) (Auto) 2 % (0-3) Basophils (%) (Auto) 1 % (0-3) Neutrophils # (Auto) 9.5 x10^3uL (1.8-7.7) Lymphocytes # (Auto) 1.3 x10^3/uL (1.0-4.8) Monocytes # (Auto) 0.6 x10^3/uL (0.0-1.1) Eosinophils # (Auto) 0.3 x10^3/uL (0.0-0.7) Basophils # (Auto) 0.1 x10^3/uL (0.0-0.2) Prothrombin Time 13.4 SEC (11.7-14.0) Prothromb Time International Ratio 1.1 (0.8-1.1) D-Dimer (Teressa) 3.81 ug/mlFEU (0.00-0.50) Sodium Level 145 mmol/L (136-145) Potassium Level 3.9 mmol/L (3.5-5.1) Chloride Level 107 mmol/L (98-107) Carbon Dioxide Level 23 mmol/L (21-32) Anion Gap 15 (6-14) Blood Urea Nitrogen 35 mg/dL (7-20) Creatinine 1.4 mg/dL (0.6-1.0) Estimated GFR (Cockcroft-Gault) 43.5 Glucose Level 158 mg/dL (70-99) Calcium Level 9.7 mg/dL (8.5-10.1) Magnesium Level 2.0 mg/dL (1.8-2.4) Creatine Kinase 82 U/L (26-192) Creatine Kinase MB (Mass) 0.6 ng/mL (0.0-3.6) Creatine Kinase MB Relative Index 0.7 % (0-4) Troponin I Quantitative 0.081 ng/mL (0.000-0.055) PF-Qku-[id number]-Type Natriuretic Peptide 3100 pg/mL (0-449) Urine Collection Type Void Urine Color Yellow Urine Clarity Clear Urine pH 5.5 Urine Specific [place] 1.010 Urine Protein 100 mg/dL (NEG-TRACE) Urine Glucose (UA) Negative mg/dL (NEG) Urine Ketones (Stick) Negative mg/dL (NEG) Urine Blood Trace (NEG) Urine Nitrite Negative (NEG) Urine Bilirubin Negative (NEG) Urine Urobilinogen Dipstick 0.2 mg/dL (0.2 mg/dL) Urine Leukocyte Esterase Negative (NEG) Urine RBC Occ /HPF (0-2) Urine WBC 1-4 /HPF (0-4) Urine Squamous Epithelial Cells Occ /LPF Urine Bacteria 0 /HPF (0-FEW) Urine Opiates Screen Neg (NEG) Urine Methadone Screen Neg (NEG) Urine Barbiturates Neg (NEG) Urine Phencyclidine Screen Neg (NEG) Urine Amphetamine/Methamphetamine Neg (NEG) Urine Benzodiazepines Screen Neg (NEG) Urine Cocaine Screen Neg (NEG) Urine Cannabinoids Screen Neg (NEG) Urine Ethyl Alcohol Neg (NEG) ECHOCARDIOGRAM ECHOCARDIOGRAM <Conclusion> Left ventricle systolic function is normal. The Ejection Fraction is 60-65%. There is normal LV segmental wall motion. There is mild to moderate concentric left ventricular hypertrophy. There is bilateral pleural effusions. DATE: 09/18/16 1101 STRESS TEST STRESS TEST Conclusion 1. No EKG evidence of stress-induced ischemia. 2. Nuclear imaging shows no reversible ischemia or infarct. 3. Normal left ventricular systolic function with an ejection fraction of greater than 70%. 4. Low risk Lexiscan nuclear stress test. DICTATED and SIGNED BY: VINNY MESA MD DATE: 11/17/14 1345 HEART CATH HEART CATH 06/2015: FINDINGS 1. Hemodynamics: Left ventricular end-diastolic pressure of 21 mmHg. No pullback gradient across the aortic valve. 2. Coronary angiography: a. The left main coronary artery arose from the left sinus of Valsalva, gave rise to the left anterior descending and left circumflex arteries and did not show any significant stenosis. b. The left anterior descending artery did not show any significant stenosis. c. The left circumflex artery did not show any significant stenosis. d. The right coronary artery was a large and dominant vessel arising from the right sinus of Valsalva that did not show any significant stenosis. Conclusion No significant coronary artery disease. Recommendations Medical Therapy ASSESSMENT/PLAN ASSESSMENT/PLAN 1. Acute on chronic diastolic HF NT Pro BNP elevated; CXR consistent with CHF improved with Lasix continue diuresis with monitoring of renal function importance of medical compliance discussed and encouraged. 2. Elevated Troponin initial 0.081- continue with series likely type II, demand ischemia in the setting of malignant HTN cath 06/2015 without significant findings 3. Malignant HTN does not routinely take medications restart home beta-blockers, losartan, and amlodipine hydralazine IV PRN 4. DM, II per primary service 5. COPD per primary service 6. MARTIN with CKD 7. Elevated d-dimer VQ scan pending 8. Hypothyroidism check TSH Problems: LUISA CRAMER MD 10/12/16 1038: CARDIAC CONSULT ALLERGIES ALLERGIES: Coded Allergies: Penicillins (Verified Allergy, Severe, Rash, 02/13/16) trimethoprim (Verified Allergy, Severe, Swelling, 02/13/16) levofloxacin (Verified Adverse Reaction, Intermediate, GI upset, 10/11/16) sulfamethoxazole (Verified Adverse Reaction, Intermediate, GI Upset, ) ASSESSMENT/PLAN ASSESSMENT/PLAN Patient seen and examined 10/11/16. Agree with CRITICAL CARE NURSE SPECIALIST's assessment and plan. Continue diuresis for acute on chronic diastolic heart failure. The importance of compliance with medications, diet and salt intake was reemphasized. Resume home medications and titrate for better control of blood pressure. Slight troponin level elevation probably secondary to accelerated hypertension. Doubt ACS based on recent cath findings. Thank you for your consultation. Problems: TL RICHARDSON APRN Oct 11, 2016 14:30 LUISA CRAMER MD Oct 12, 2016 10:38
[2016-10-11 14:47] VITALS: BP 190/66
[2016-10-11] MEDS ORDERED: hydrALAZINE 20 MG/ML VIAL. IVP PRN (15:30)
--- NOTE | 2016-10-11 15:50 | RAD ---
Indication shortness of breath. Elevated d-dimer. Ventilation perfusion lung scan was performed. 10 mCi of xenon-133 was administered to evaluate ventilation. 6 mCi of technetium sulfur colloid was tagged to the patient's red cells and administered to evaluate perfusion. Note is made of a similar examination 12/10/2013. The study is correlated with a single view of the chest obtained today. No significant ventilatory abnormality is seen. Significant air trapping is not seen. Perfusion is unremarkable. No V/Q mismatch is seen. The study is considered low to very low probability for pulmonary embolus. IMPRESSION: Low to very low probability VQ scan for pulmonary embolus
[2016-10-11] MEDS: ASPIRIN CHEWABLE 81 MG TABLET. PO SCH (16:00)
[2016-10-11] MEDS: LOSARTAN POTASSIUM 50 MG TABLET. PO SCH (16:00)
[2016-10-11] MEDS ORDERED: POLYETHYLENE GLYCOL 3350 17 GM PACKET. PO PRN (17:45)
[2016-10-11] MEDS ORDERED: ALPRAZolam 0.25 MG TABLET PO PRN (17:45)
[2016-10-11] MEDS ORDERED: traMADol 50 MG TABLET PO PRN (17:45)
[2016-10-11] MEDS ORDERED: ALBUTEROL SULFATE 2.5 MG/3 ML NEBU. NEB PRN (18:30)
[2016-10-11 19:40] VITALS: BP 152/50
[2016-10-11] MEDS ORDERED: DEXTROSE 50% 25 GM / 50ML DISP.SYRIN. IV PRN (19:45)
[2016-10-11] MEDS: METOPROLOL TART IMMED RELEASE 50 MG TABLET. PO SCH (21:27)
[2016-10-11 23:35] VITALS: BP 148/48
[2016-10-12 03:17] VITALS: BP 149/47
[2016-10-12 05:36] LABS: BASO # 0.1 x10^3/uL (0.0-0.2); BASO % 1 % (0-3); EOS % 4 % (0-3); HEMATOCRIT 31.7 % (36.0-47.0); HEMOGLOBIN 10.6 g/dL (12.0-15.5); LYMPH # 1.7 x10^3/uL (1.0-4.8); LYMPH % 24 % (24-48); MEAN CORPUSCULAR HEMOGLOBIN 34 pg (25-35); MEAN CORPUSCULAR HGB CONC 34 g/dL (31-37); MEAN CORPUSCULAR VOLUME 101 fL (79-100); MONO % 9 % (0-9); NEUT % 62 % (31-73); PLATELET COUNT 375 x10^3/uL (140-400); RED BLOOD COUNT 3.12 x10^6/uL (3.50-5.40); RED CELL DISTRIBUTION WIDTH 12.7 % (11.5-14.5); WHITE BLOOD COUNT 7.3 x10^3/uL (4.0-11.0)
[2016-10-12 05:55] LABS: CALCIUM 8.7 mg/dL (8.5-10.1); CREATININE 1.4 mg/dL (0.6-1.0); GFR 43.5; POTASSIUM 3.1 mmol/L (3.5-5.1)
[2016-10-12 07:00] VITALS: BP 142/51
[2016-10-12] MEDS ORDERED: LEVOTHYROXINE 100 MCG TABLET PO SCH (07:00)
[2016-10-12] MEDS: INSULIN ASPART 300 UNITS/3 ML INSULN.PEN SQ SCH ×3 (08:00→17:00)
[2016-10-12] MEDS: IPRATRPIUM/ALBUTEROL 0.5/2.5MG 3 ML NEBU. NEB SCH ×3 (08:02→15:15)
[2016-10-12] MEDS: LINAGLIPTIN 5 MG TABLET PO SCH (08:18)
[2016-10-12] MEDS: LOSARTAN POTASSIUM 50 MG TABLET. PO SCH (08:19)
[2016-10-12] MEDS: PANTOPRAZOLE 40 MG TABLET.DR. PO SCH (08:19)
[2016-10-12] MEDS: REPAGLINIDE 0.5 MG TABLET PO SCH ×3 (08:20→17:40)
[2016-10-12] MEDS: METOPROLOL TART IMMED RELEASE 50 MG TABLET. PO SCH ×2 (08:21→20:41)
[2016-10-12] MEDS: ASPIRIN CHEWABLE 81 MG TABLET. PO SCH (08:21)
[2016-10-12] MEDS: amLODIPine BESYLATE 10 MG TABLET PO SCH (08:22)
[2016-10-12] MEDS: POTASSIUM CHLORIDE 20 MEQ TABLET.ER. PO SCH (08:22)
[2016-10-12] MEDS: FUROSEMIDE 40 MG/4 ML VIAL. IVP SCH (08:23)
[2016-10-12] MEDS ORDERED: FUROSEMIDE 40 MG TABLET. PO SCH (09:00)
[2016-10-12] MEDS ORDERED: POTASSIUM CHLORIDE 20 MEQ TABLET.ER. PO ONE (09:30)
--- NOTE | 2016-10-12 10:15 | PDOC ---
Provider Note Provider Note Pt seen.H&P dictated. #[id number] SAMMI DE PAZ MD Oct 12, 2016 10:15
[2016-10-12 11:00] VITALS: BP 136/37
--- NOTE | 2016-10-12 11:17 | HP ---
ADMIT DATE: 10/11/2016 LOCATION: [facility] REASON FOR ADMISSION TO THE HOSPITAL: Shortness of breath, chest pain. HISTORY OF PRESENT ILLNESS: The patient is an 81-year-old female patient known to me with history of diabetes, hypertension, hyperlipidemia, chronic renal insufficiency, and hypothyroidism. She was having chest pain and heaviness in the chest, came to the Emergency Room. Troponin was borderline elevated. BNP was highly elevated, was admitted to the hospital, had a VQ scan negative for pulmonary embolism, seen by Cardiology. PAST MEDICAL HISTORY: Has a history of diastolic heart failure, hypertension, hyperlipidemia, hypothyroidism, sleep apnea, COPD, GERD, diverticulosis, osteoarthritis, chronic renal insufficiency, diabetes. PAST SURGICAL HISTORY: Appendectomy, gallbladder surgery, hernia repair, hysterectomy, cardiac catheterization done last year, normal coronary artery disease. FAMILY HISTORY: Cancer of the stomach in the father and diabetes. SOCIAL HISTORY: No history of smoking, alcohol, drug abuse. ALLERGIES: PENICILLIN, LEVAQUIN, SULFA, BACTRIM. MEDICATIONS AT HOME: Albuterol 2 times daily, Xanax p.r.n. 0.25 mg, amlodipine 10 mg daily, aspirin 81 mg daily, Lasix 40 mg daily, levothyroxine 200 mcg daily, metoprolol 50 mg daily, Starlix, which is nateglinide 60 mg 3 times daily, omeprazole 20 mg daily, MiraLax 17 grams daily, potassium 20 mEq daily, Januvia 50 mg daily, tramadol 50 mg q. 12, Diovan 320 mg daily. REVIEW OF SYMPTOMS: She complains of shortness of breath as well as chest tightness, improved now. GASTROINTESTINAL: No nausea or vomiting. NEUROLOGICAL: No weakness. The rest of the 14 system was reviewed and negative. PHYSICAL EXAMINATION: GENERAL: The patient is comfortable, not in any distress. VITAL SIGNS: At the time of admission shows a temperature 99, pulse 80, respirations 28, blood pressure 201/89. 91% on 2 liters. HEENT: Head is atraumatic. Pupils equal. No dentures. NECK: Supple. Thyroid not enlarged. JVD not elevated. CHEST: Symmetrical. CARDIOVASCULAR: S1, S2. LUNGS: Clear to auscultation. ABDOMEN: Soft. No mass palpable. EXTERNAL GENITALIA: No Tenorio. RECTAL: Deferred. EXTREMITIES: No calf tenderness. Pulses 1+. NEUROLOGIC: Moving all extremities. No focal deficits noted. LABORATORY DATA: Shows a white count of 11, hemoglobin 12, platelets 462. Electrolytes show sodium 145, potassium 3.9, chloride 107, bicarbonate 15, BUN 35, creatinine 1.4, glucose 158. TSH is 0.162. BNP 3100. Troponin 0.081 and had a VQ scan negative for PE. Chest x-ray shows cardiomegaly, small pleural effusions. FINAL IMPRESSION: 1. Chest pain for evaluation. 2. Accelerated hypertension. 3. Diastolic heart failure. 4. Diabetes. 5. Hypertension. 6. Hyperlipidemia. 7. 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 PLAN: At this time, was admitted to the hospital, cardiac catheterization last year was negative no blockages. Echocardiogram showed good left ventricular function and VQ was negative. hydralazine to control blood pressure. PT, OT to see how she does. Should be able to be discharged in 1-2 days. SAMMI DE PAZ MD DR: BHAVANA/sb JOB#: [id number] / [id number] ALNDON
[2016-10-12] MEDS: ENOXAPARIN 30 MG/0.3 ML SYRINGE. SQ SCH (12:02)
--- NOTE | 2016-10-12 13:56 | PDOC ---
CARDIO Progress Notes Date and Time Date of Service 10/12/16 Time of Evaluation 1320 Subjective Subjective: No Chest Pain, No shortness of breath, No Palpitations Vitals Vitals Vital Signs Date Time Temp Pulse Resp B/P (MAP) Pulse Ox O2 Delivery O2 Flow Rate FiO2 10/12/16 12:00 Nasal Cannula 2.0 10/12/16 11:00 98.1 60 16 136/37 (70) 97 98.1 Weight Weight [ ] Input and Output Intake and Output Intake and Output 10/12/16 06:59 Intake Total 300 ml Output Total 1925 ml Balance -1625 ml Intake Oral 300 ml Output Urine Total 1925 ml # Bowel Movements 1 Laboratory Labs Laboratory Tests Test 10/11/16 17:40 10/11/16 20:41 10/12/16 00:01 10/12/16 05:00 Troponin I Quantitative 0.095 ng/mL (0.000-0.055) 0.075 ng/mL (0.000-0.055) Glucose (Fingerstick) 139 mg/dL (70-99) White Blood Count 7.3 x10^3/uL (4.0-11.0) Red Blood Count 3.12 x10^6/uL (3.50-5.40) Hemoglobin 10.6 g/dL (12.0-15.5) Hematocrit 31.7 % (36.0-47.0) Mean Corpuscular Volume 101 fL (79-100) Mean Corpuscular Hemoglobin 34 pg (25-35) Mean Corpuscular Hemoglobin Concent 34 g/dL (31-37) Red Cell Distribution Width 12.7 % (11.5-14.5) Platelet Count 375 x10^3/uL (140-400) Neutrophils (%) (Auto) 62 % (31-73) Lymphocytes (%) (Auto) 24 % (24-48) Monocytes (%) (Auto) 9 % (0-9) Eosinophils (%) (Auto) 4 % (0-3) Basophils (%) (Auto) 1 % (0-3) Neutrophils # (Auto) 4.5 x10^3uL (1.8-7.7) Lymphocytes # (Auto) 1.7 x10^3/uL (1.0-4.8) Monocytes # (Auto) 0.7 x10^3/uL (0.0-1.1) Eosinophils # (Auto) 0.3 x10^3/uL (0.0-0.7) Basophils # (Auto) 0.1 x10^3/uL (0.0-0.2) Sodium Level 145 mmol/L (136-145) Potassium Level 3.1 mmol/L (3.5-5.1) Chloride Level 107 mmol/L (98-107) Carbon Dioxide Level 25 mmol/L (21-32) Anion Gap 13 (6-14) Blood Urea Nitrogen 32 mg/dL (7-20) Creatinine 1.4 mg/dL (0.6-1.0) Estimated GFR (Cockcroft-Gault) 43.5 Glucose Level 104 mg/dL (70-99) Calcium Level 8.7 mg/dL (8.5-10.1) Test 10/12/16 07:59 10/12/16 11:37 Glucose (Fingerstick) 130 mg/dL (70-99) 120 mg/dL (70-99) Microbiology Micro Microbiology 10/11/16 Blood Culture - Preliminary, Resulted NO GROWTH AFTER 1 DAY Physical Exam HEENT: Neck Supple W Full Motion Chest: Symmetric LUNGS: Clear to Auscultation Heart: S1S2, RRR Abdomen: Soft N/T Extremities: No Edema Neurology: alert, oriented, follow commands Assessment Assessment 1. Acute on chronic diastolic HF improved with diuresis; now compensated convert IV Lasix to oral in am 2Gm Na diet- d/w patient and daughter may discharge from a CV standpoint and f/u in our office with Dr. Mcgill in 1 month 2. Elevated Troponin peak 0.095 likely type II, demand ischemia in the setting of malignant HTN cath 06/2015 without significant findings 3. Malignant HTN controlled with resumption of home antiHTN therapy 4. DM, II per primary service 5. MARTIN with CKD 6. Elevated d-dimer VQ low probability 7. Hypothyroidism TL RICHARDSON APRN Oct 12, 2016 13:56
[2016-10-12 15:00] VITALS: BP 153/45
[2016-10-12 19:35] VITALS: BP 167/72
[2016-10-12 22:36] VITALS: BP 137/53
[2016-10-13 03:08] VITALS: BP 163/61
[2016-10-13 06:12] LABS: CALCIUM 8.7 mg/dL (8.5-10.1); CREATININE 1.4 mg/dL (0.6-1.0); GFR 43.5; POTASSIUM 3.9 mmol/L (3.5-5.1)
[2016-10-13] MEDS ORDERED: LEVOTHYROXINE 150 MCG TABLET PO SCH (07:00)
--- NOTE | 2016-10-13 07:22 | PDOC ---
BARBIAnnieMARGUERITE HEATH TORPEDOMAN'S MATE 10/13/16 0722: IM PROGRESS NOTES- Subjective Subjective feeling better, breathing better Objective Objective alert, no acute distress Vitals Vital Signs Date Time Temp Pulse Resp B/P (MAP) Pulse Ox O2 Delivery O2 Flow Rate FiO2 10/13/16 05:21 96 Nasal Cannula 3.0 10/13/16 03:08 99.5 70 16 163/61 (95) 99.5 Input & Output Intake and Output 10/13/16 07:00 Intake Total 1550 ml Output Total 1600 ml Balance -50 ml Intake Oral 1550 ml Output Urine Total 1600 ml Physical Exam Physical Exam General appearance - alert, elderly appearing, and in no distress Mental Status - alert, oriented to person, place, and time, affect appropriate to mood Head - normal Chest - clear to auscultation, no wheezes, rales or rhonchi, decreased bases Heart - S1 and S2 normal Abdomen - soft, nontender, nondistended, BS + Neurological - no acute neurological deficits noted. Musculoskeletal - no muscular tenderness noted Extremities - no pedal edema Skin - warm and dry Labs Laboratory Tests Test 10/11/16 10:00 10/11/16 10:05 10/11/16 11:35 10/11/16 17:40 O2 Saturation 94 % (92-99) Arterial Blood pH 7.43 (7.35-7.45) Arterial Blood pCO2 at Patient Temp 32 mmHg (35-46) Arterial Blood pO2 at Patient Temp 76 mmHg (65-108) Arterial Blood HCO3 21 mmol/L (21-28) Arterial Blood Base Excess -3 mmol/L (-3-3) Oxyhemoglobin 92.9 % Methemoglobin 0.4 % (0.0-1.9) Carbon Monoxide, Quantitative 0.5 % (0.0-1.9) FiO2 28 White Blood Count 11.6 x10^3/uL (4.0-11.0) Red Blood Count 3.68 x10^6/uL (3.50-5.40) Hemoglobin 12.4 g/dL (12.0-15.5) Hematocrit 36.0 % (36.0-47.0) Mean Corpuscular Volume 98 fL (79-100) Mean Corpuscular Hemoglobin 34 pg (25-35) Mean Corpuscular Hemoglobin Concent 35 g/dL (31-37) Red Cell Distribution Width 12.9 % (11.5-14.5) Platelet Count 462 x10^3/uL (140-400) Neutrophils (%) (Auto) 81 % (31-73) Lymphocytes (%) (Auto) 11 % (24-48) Monocytes (%) (Auto) 5 % (0-9) Eosinophils (%) (Auto) 2 % (0-3) Basophils (%) (Auto) 1 % (0-3) Neutrophils # (Auto) 9.5 x10^3uL (1.8-7.7) Lymphocytes # (Auto) 1.3 x10^3/uL (1.0-4.8) Monocytes # (Auto) 0.6 x10^3/uL (0.0-1.1) Eosinophils # (Auto) 0.3 x10^3/uL (0.0-0.7) Basophils # (Auto) 0.1 x10^3/uL (0.0-0.2) Prothrombin Time 13.4 SEC (11.7-14.0) Prothromb Time International Ratio 1.1 (0.8-1.1) D-Dimer (Teressa) 3.81 ug/mlFEU (0.00-0.50) Sodium Level 145 mmol/L (136-145) Potassium Level 3.9 mmol/L (3.5-5.1) Chloride Level 107 mmol/L (98-107) Carbon Dioxide Level 23 mmol/L (21-32) Anion Gap 15 (6-14) Blood Urea Nitrogen 35 mg/dL (7-20) Creatinine 1.4 mg/dL (0.6-1.0) Estimated GFR (Cockcroft-Gault) 43.5 Glucose Level 158 mg/dL (70-99) Calcium Level 9.7 mg/dL (8.5-10.1) Magnesium Level 2.0 mg/dL (1.8-2.4) Creatine Kinase 82 U/L (26-192) Creatine Kinase MB (Mass) 0.6 ng/mL (0.0-3.6) Creatine Kinase MB Relative Index 0.7 % (0-4) Troponin I Quantitative 0.081 ng/mL (0.000-0.055) 0.095 ng/mL (0.000-0.055) AK-Sao-Y-Type Natriuretic Peptide 3100 pg/mL (0-449) Thyroid Stimulating Hormone (TSH) 0.162 uIU/mL (0.358-3.74) Urine Collection Type Void Urine Color Yellow Urine Clarity Clear Urine pH 5.5 Urine Specific [place] 1.010 Urine Protein 100 mg/dL (NEG-TRACE) Urine Glucose (UA) Negative mg/dL (NEG) Urine Ketones (Stick) Negative mg/dL (NEG) Urine Blood Trace (NEG) Urine Nitrite Negative (NEG) Urine Bilirubin Negative (NEG) Urine Urobilinogen Dipstick 0.2 mg/dL (0.2 mg/dL) Urine Leukocyte Esterase Negative (NEG) Urine RBC Occ /HPF (0-2) Urine WBC 1-4 /HPF (0-4) Urine Squamous Epithelial Cells Occ /LPF Urine Bacteria 0 /HPF (0-FEW) Urine Opiates Screen Neg (NEG) Urine Methadone Screen Neg (NEG) Urine Barbiturates Neg (NEG) Urine Phencyclidine Screen Neg (NEG) Urine Amphetamine/Methamphetamine Neg (NEG) Urine Benzodiazepines Screen Neg (NEG) Urine Cocaine Screen Neg (NEG) Urine Cannabinoids Screen Neg (NEG) Urine Ethyl Alcohol Neg (NEG) Test 10/11/16 20:41 10/12/16 00:01 10/12/16 05:00 10/12/16 07:59 Glucose (Fingerstick) 139 mg/dL (70-99) 130 mg/dL (70-99) Troponin I Quantitative 0.075 ng/mL (0.000-0.055) White Blood Count 7.3 x10^3/uL (4.0-11.0) Red Blood Count 3.12 x10^6/uL (3.50-5.40) Hemoglobin 10.6 g/dL (12.0-15.5) Hematocrit 31.7 % (36.0-47.0) Mean Corpuscular Volume 101 fL (79-100) Mean Corpuscular Hemoglobin 34 pg (25-35) Mean Corpuscular Hemoglobin Concent 34 g/dL (31-37) Red Cell Distribution Width 12.7 % (11.5-14.5) Platelet Count 375 x10^3/uL (140-400) Neutrophils (%) (Auto) 62 % (31-73) Lymphocytes (%) (Auto) 24 % (24-48) Monocytes (%) (Auto) 9 % (0-9) Eosinophils (%) (Auto) 4 % (0-3) Basophils (%) (Auto) 1 % (0-3) Neutrophils # (Auto) 4.5 x10^3uL (1.8-7.7) Lymphocytes # (Auto) 1.7 x10^3/uL (1.0-4.8) Monocytes # (Auto) 0.7 x10^3/uL (0.0-1.1) Eosinophils # (Auto) 0.3 x10^3/uL (0.0-0.7) Basophils # (Auto) 0.1 x10^3/uL (0.0-0.2) Sodium Level 145 mmol/L (136-145) Potassium Level 3.1 mmol/L (3.5-5.1) Chloride Level 107 mmol/L (98-107) Carbon Dioxide Level 25 mmol/L (21-32) Anion Gap 13 (6-14) Blood Urea Nitrogen 32 mg/dL (7-20) Creatinine 1.4 mg/dL (0.6-1.0) Estimated GFR (Cockcroft-Gault) 43.5 Glucose Level 104 mg/dL (70-99) Calcium Level 8.7 mg/dL (8.5-10.1) Test 10/12/16 11:37 10/12/16 16:29 10/12/16 20:45 10/13/16 05:20 Glucose (Fingerstick) 120 mg/dL (70-99) 87 mg/dL (70-99) 107 mg/dL (70-99) Sodium Level 143 mmol/L (136-145) Potassium Level 3.9 mmol/L (3.5-5.1) Chloride Level 107 mmol/L (98-107) Carbon Dioxide Level 26 mmol/L (21-32) Anion Gap 10 (6-14) Blood Urea Nitrogen 33 mg/dL (7-20) Creatinine 1.4 mg/dL (0.6-1.0) Estimated GFR (Cockcroft-Gault) 43.5 Glucose Level 120 mg/dL (70-99) Calcium Level 8.7 mg/dL (8.5-10.1) Laboratory Tests Test 10/12/16 07:59 10/12/16 11:37 10/12/16 16:29 10/12/16 20:45 Glucose (Fingerstick) 130 mg/dL (70-99) 120 mg/dL (70-99) 87 mg/dL (70-99) 107 mg/dL (70-99) Test 10/13/16 05:20 Sodium Level 143 mmol/L (136-145) Potassium Level 3.9 mmol/L (3.5-5.1) Chloride Level 107 mmol/L (98-107) Carbon Dioxide Level 26 mmol/L (21-32) Anion Gap 10 (6-14) Blood Urea Nitrogen 33 mg/dL (7-20) Creatinine 1.4 mg/dL (0.6-1.0) Estimated GFR (Cockcroft-Gault) 43.5 Glucose Level 120 mg/dL (70-99) Calcium Level 8.7 mg/dL (8.5-10.1) Meds Current Medications Amlodipine Besylate (Norvasc) 10 mg DAILY PO Last administered on 10/12/16 08: 22; Start 10/12/16 at 09:00 Enoxaparin Sodium (Lovenox 30mg Syringe) 30 mg Q24H SQ Last administered on 10/12 12:02; Start 10/12/16 at 13:00 Furosemide (Lasix) 40 mg DAILY IVP Last administered on 10/12/16 08:23; Start 10/12/16 at 09:00; Stop 10/13/16 at 10:00 Furosemide (Lasix) 40 mg DAILY PO ; Start 10/12/16 at 09:00; Status UNV Furosemide (Lasix) 40 mg DAILY PO ; Start 10/14/16 at 09:00 Insulin Aspart (NovoLOG) 0-5 UNITS TIDWMEALS SQ ; Start 10/12/16 at 08:00 Levothyroxine Sodium (Synthroid) 150 mcg DAILY07 PO Last administered on 06:40; Start 10/13/16 at 07:00 Linagliptin (Tradjenta) 5 mg DAILY PO Last administered on 10/12/16 08:18; Start 10/12/16 at 09:00 Pantoprazole Sodium (Protonix) 40 mg DAILYAC PO Last administered on 10/12/16 08:19; Start 10/12/16 at 07:30 Potassium Chloride (Klor-Con) 20 meq DAILY PO Last administered on 10/12/16 08: 22; Start 10/12/16 at 09:00 Potassium Chloride (Klor-Con) 40 meq 1X ONCE PO Last administered on 10/12/16 10:53; Start 10/12/16 at 09:30; Stop 10/12/16 at 09:31; Status DC Repaglinide (Prandin) 1 mg TIDAC PO Last administered on 10/12/16 17:40; Start 10/12/16 at 07:30 Assessment Assessment FINAL IMPRESSION: 1. Chest pain for evaluation. 2. Accelerated hypertension. 3. Diastolic heart failure. 4. Diabetes. 5. Hypertension. 6. Hyperlipidemia. 7. 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 PLAN: chest pain due to acute diastolic CHF non cardiac CC last year negative VQ scan negative acute on chronic diastolic CHF Lasix IV on admit, change to oral today okay to discharge from cardiac standpoint. pleural effusions larger this admit c/w prior CXR CXR today prior to discharge low grade temp Admit 99 today 99.5 cough prior to ED evaluation non productive and has improved-r/t CHF UA negative BC negative WBC 12.4 and decrease to 10.6 w/o antibiotics Please see orders DC home initiated Plan Plan For more details regarding further plans, please refer to the orders. HA KHAN MD 10/13/16 1048: IM PROGRESS NOTES- Assessment Assessment The patient was seen and examined by me. Chart reviewed and plan of care formulated. Discussed with, reviewed and agree with [employer] ASSISTANT TEACHER's notes, plan of care and orders with modifications as necessary. For more details regarding further plans, please refer to the orders. Doing well.Lungs clear. Ok to discharge with [facility]. see in 5 days. MARGUERITE VERDUZCO APRN Oct 13, 2016 07:22 HA KHAN MD Oct 13, 2016 10:48
--- NOTE | 2016-10-13 07:23 | DISCH ---
DISCHARGE FINAL DIAGNOSIS Problems Medical Problems: (1) Accelerated hypertension Status: Acute (2) Acute renal failure Status: Acute (3) CHF (congestive heart failure) Status: Acute (4) Pleural effusion on left Status: Acute (5) Pleural effusion on right Status: Acute (6) Shortness of breath Status: Acute CONDITION ON DISCHARGE: Stable HOME HEALTH: Yes PT. HAS FUNCTIONAL LIMITATIONS: Yes FACE TO FACE ENCOUNTER: Yes POST DISCHARGE ORDERS ACTIVITY ORDERS: Activity as tolerated, Progressive ambulation WEIGHT BEARING STATUS: Full weight bearing DIET AFTER DISCHARGE: Cardiac (no concentrated sweets) CHECKS AFTER DISCHARGE CHECKS AFTER DISCHARGE: Weigh Yourself Daily (Notify Dr. Núñez > 2 pound weight gain in 24 hours or 3 pound weight gain in 48 hours. ) COMMENTS: check BS 3 times daily before meals FOLLOW-UP PHYSICIAN FOLLOW-UP: Dr. Núñez in 3-5 days ADDITIONAL FOLLOW-UP: Dr. Mcgill one month TREATMENT/EQUIPMENT ORDERS ADAPTIVE EQUIPMENT NEEDED: None MARGUERITE VERDUZCO APRN Oct 13, 2016 07:23
[2016-10-13 07:25] VITALS: BP 149/54
[2016-10-13] MEDS ORDERED: LEVO150T PO (07:29)
[2016-10-13] MEDS ORDERED: ALPR0.254 PO (07:29)
[2016-10-13] MEDS ORDERED: METO50TA2 PO (07:29)
[2016-10-13] MEDS: INSULIN ASPART 300 UNITS/3 ML INSULN.PEN SQ SCH ×2 (08:00→11:51)
[2016-10-13] MEDS: REPAGLINIDE 0.5 MG TABLET PO SCH ×2 (08:21→11:30)
[2016-10-13] MEDS: amLODIPine BESYLATE 10 MG TABLET PO SCH (08:22)
[2016-10-13] MEDS: PANTOPRAZOLE 40 MG TABLET.DR. PO SCH (08:22)
[2016-10-13] MEDS: LINAGLIPTIN 5 MG TABLET PO SCH (08:22)
[2016-10-13] MEDS: FUROSEMIDE 40 MG/4 ML VIAL. IVP SCH (08:25)
[2016-10-13] MEDS: METOPROLOL TART IMMED RELEASE 50 MG TABLET. PO SCH (08:25)
[2016-10-13] MEDS: POTASSIUM CHLORIDE 20 MEQ TABLET.ER. PO SCH (08:25)
[2016-10-13] MEDS: ASPIRIN CHEWABLE 81 MG TABLET. PO SCH (08:25)
[2016-10-13] MEDS: LOSARTAN POTASSIUM 50 MG TABLET. PO SCH (08:26)
--- NOTE | 2016-10-13 09:06 | RAD ---
Indication: CHF and pleural effusion. Time of exam 0852 hours. Correlation is made with prior study from 10/11/2016. The heart is enlarged and stable. Left basilar effusion and consolidation is similar to prior exam. A small right effusion is seen. Mid and upper lung singer are clear. There is no pneumothorax. Impression: Stable chest since 2 days earlier.
--- NOTE | 2016-10-13 09:20 | DISCH ---
DISCHARGE WITH HOME HEALTH DISCHARGE INFORMATION: Discharge Date: Oct 13, 2016 Final Diagnosis: Problems Medical Problems: (1) Accelerated hypertension Status: Acute (2) Acute renal failure Status: Acute (3) CHF (congestive heart failure) Status: Acute (4) Pleural effusion on left Status: Acute (5) Pleural effusion on right Status: Acute (6) Shortness of breath Status: Acute Condition on Discharge: Stable HOME HEALTH: Face to Face: I certify this patient is under my care and that I, or a nurse practitioner or physician's dental assistant medical assistant working with me, had a face to face encounter that meets the physician face to face encounter requirements with this patient on 10/13/16. Medical Condition(s): CHF Senior Living For: Assess/Skilled Observatio Physical Therapy For: Evalulation/Treatment Occupational Therapy For: Evaluation/Treatment Patient meets Homebound Statu: Poor coordination w/ amb. FOLLOW-UP: Follow up with: Dr. Núñez in 3-5 days CERTIFICATION STATEMENT: Certification Statement: Certification Statement: Based on the above finding, I certify that this patient is confined to the home and needs intermittent shelter care, physical therapy and/or speech therapy, or continues to need occupational therapy.~ This patient is under my care, and I have initiated the establishment of the plan of care.~ This patient will be followed by myself or a community physician who will periodically review the plan of care. MARGUERITE VERDUZCO APRN Oct 13, 2016 09:20
--- NOTE | 2016-10-13 09:29 | PDOC1 ---
HISTORY AND PHYSICAL Chief Complaint Chief Complaint This 81 year old female has been admitted with a chief complaint of mental status changes. She currently is at [facility] in [facility] on hospice ([facility]). The staff was contacted this morning for the PMH. 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 For the last two weeks she has had behavioral issues with agitation that is becoming worse. These behaviors are noted to coincide with hypoxia as she will not keep her oxygen on. Haldol was initiated as part of her hospice orders and her agitation/removal of oxygen = hypoxia has not improved. Hospice was revoked and she was sent to the ED for evaluation. Her behavior was stable in the Ed, oxygen sat >90% and K3.2. She was admitted to the medical surgical unit for evaluation. Problem List Problems Medical Problems: (1) Accelerated hypertension Status: Acute (2) Acute renal failure Status: Acute (3) CHF (congestive heart failure) Status: Acute (4) Pleural effusion on left Status: Acute (5) Pleural effusion on right Status: Acute (6) Shortness of breath Status: Acute Past Medical History Cardiovascular: CHF (unknown ), HTN, Hyperlipidemia Pulmonary: COPD CENTRAL NERVOUS SYSTEM: Periperal neuropathy GI: Constipation, Diverticulosis, GERD, Hemorrhoids, Other Heme/Onc: B12 deficiency Hepatobiliary: No pertinent hx Psych: Anxiety Musculoskeletal: Osteoarthritis Rheumatologic: No pertinent hx Infectious disease: No pertinent hx Renal/: Chronic renal insuff Endocrine: Diabetes, Hypothyroidism, Hyperparathyroidism, Osteoporosis, Other Past Surgical History Past Surgical History: Appendectomy, Cholecystectomy, Hernia Repair, Hysterectomy Past Family History Family History: Cancer, Diabetes Review of Symptoms Review of Symptoms A 14 point ROS was completed with the following noted as positive: Other systems reviewed and negative. Medications Current Medications Enoxaparin Sodium (Lovenox 30mg Syringe) 30 mg Q24H SQ Last administered on 10/12 12:02; Start 10/12/16 at 13:00 Furosemide (Lasix) 40 mg DAILY PO ; Start 10/14/16 at 09:00 Levothyroxine Sodium (Synthroid) 150 mcg DAILY07 PO Last administered on 06:40; Start 10/13/16 at 07:00 Potassium Chloride (Klor-Con) 40 meq 1X ONCE PO Last administered on 6/2/17at 10:53; Start 10/12/16 at 09:30; Stop 10/12/16 at 09:31; Status DC Allergy Allergies Coded Allergies Type Severity Reaction Last Updated Verified Penicillins Allergy Severe Rash 02/13/16 Yes trimethoprim Allergy Severe Swelling 02/13/16 Yes levofloxacin Adverse Reaction Intermediate GI upset 10/11/16 Yes sulfamethoxazole Adverse Reaction Intermediate GI Upset 10/11/16 Yes Physical Exam Physical Exam General appearance - alert,well appearing, and in no distress and oriented to person, place, and time Mental Status - alert, oriented to person, place, and time, affect appropriate to mood Head - normal Chest - clear to auscultation, no wheezes, rales or rhonchi, symmetric air entry Heart - S1 and S2 normal Abdomen - soft, nontender, nondistended, no masses or organomegaly Neurological - alert and oriented Musculoskeletal - no muscular tenderness noted Extremities - no pedal edema Skin - warm and dry VTE Prophylaxis Ordered VTE Prophylaxis Devices: Yes Assessment Labs Laboratory Tests Test 10/11/16 10:00 10/11/16 10:05 10/11/16 11:35 10/11/16 17:40 O2 Saturation 94 % (92-99) Arterial Blood pH 7.43 (7.35-7.45) Arterial Blood pCO2 at Patient Temp 32 mmHg (35-46) Arterial Blood pO2 at Patient Temp 76 mmHg (65-108) Arterial Blood HCO3 21 mmol/L (21-28) Arterial Blood Base Excess -3 mmol/L (-3-3) Oxyhemoglobin 92.9 % Methemoglobin 0.4 % (0.0-1.9) Carbon Monoxide, Quantitative 0.5 % (0.0-1.9) FiO2 28 White Blood Count 11.6 x10^3/uL (4.0-11.0) Red Blood Count 3.68 x10^6/uL (3.50-5.40) Hemoglobin 12.4 g/dL (12.0-15.5) Hematocrit 36.0 % (36.0-47.0) Mean Corpuscular Volume 98 fL (79-100) Mean Corpuscular Hemoglobin 34 pg (25-35) Mean Corpuscular Hemoglobin Concent 35 g/dL (31-37) Red Cell Distribution Width 12.9 % (11.5-14.5) Platelet Count 462 x10^3/uL (140-400) Neutrophils (%) (Auto) 81 % (31-73) Lymphocytes (%) (Auto) 11 % (24-48) Monocytes (%) (Auto) 5 % (0-9) Eosinophils (%) (Auto) 2 % (0-3) Basophils (%) (Auto) 1 % (0-3) Neutrophils # (Auto) 9.5 x10^3uL (1.8-7.7) Lymphocytes # (Auto) 1.3 x10^3/uL (1.0-4.8) Monocytes # (Auto) 0.6 x10^3/uL (0.0-1.1) Eosinophils # (Auto) 0.3 x10^3/uL (0.0-0.7) Basophils # (Auto) 0.1 x10^3/uL (0.0-0.2) Prothrombin Time 13.4 SEC (11.7-14.0) Prothromb Time International Ratio 1.1 (0.8-1.1) D-Dimer (Teressa) 3.81 ug/mlFEU (0.00-0.50) Sodium Level 145 mmol/L (136-145) Potassium Level 3.9 mmol/L (3.5-5.1) Chloride Level 107 mmol/L (98-107) Carbon Dioxide Level 23 mmol/L (21-32) Anion Gap 15 (6-14) Blood Urea Nitrogen 35 mg/dL (7-20) Creatinine 1.4 mg/dL (0.6-1.0) Estimated GFR (Cockcroft-Gault) 43.5 Glucose Level 158 mg/dL (70-99) Calcium Level 9.7 mg/dL (8.5-10.1) Magnesium Level 2.0 mg/dL (1.8-2.4) Creatine Kinase 82 U/L (26-192) Creatine Kinase MB (Mass) 0.6 ng/mL (0.0-3.6) Creatine Kinase MB Relative Index 0.7 % (0-4) Troponin I Quantitative 0.081 ng/mL (0.000-0.055) 0.095 ng/mL (0.000-0.055) YJ-Xgx-T-Type Natriuretic Peptide 3100 pg/mL (0-449) Thyroid Stimulating Hormone (TSH) 0.162 uIU/mL (0.358-3.74) Urine Collection Type Void Urine Color Yellow Urine Clarity Clear Urine pH 5.5 Urine Specific [place] 1.010 Urine Protein 100 mg/dL (NEG-TRACE) Urine Glucose (UA) Negative mg/dL (NEG) Urine Ketones (Stick) Negative mg/dL (NEG) Urine Blood Trace (NEG) Urine Nitrite Negative (NEG) Urine Bilirubin Negative (NEG) Urine Urobilinogen Dipstick 0.2 mg/dL (0.2 mg/dL) Urine Leukocyte Esterase Negative (NEG) Urine RBC Occ /HPF (0-2) Urine WBC 1-4 /HPF (0-4) Urine Squamous Epithelial Cells Occ /LPF Urine Bacteria 0 /HPF (0-FEW) Urine Opiates Screen Neg (NEG) Urine Methadone Screen Neg (NEG) Urine Barbiturates Neg (NEG) Urine Phencyclidine Screen Neg (NEG) Urine Amphetamine/Methamphetamine Neg (NEG) Urine Benzodiazepines Screen Neg (NEG) Urine Cocaine Screen Neg (NEG) Urine Cannabinoids Screen Neg (NEG) Urine Ethyl Alcohol Neg (NEG) Test 10/11/16 20:41 10/12/16 00:01 10/12/16 05:00 10/12/16 07:59 Glucose (Fingerstick) 139 mg/dL (70-99) 130 mg/dL (70-99) Troponin I Quantitative 0.075 ng/mL (0.000-0.055) White Blood Count 7.3 x10^3/uL (4.0-11.0) Red Blood Count 3.12 x10^6/uL (3.50-5.40) Hemoglobin 10.6 g/dL (12.0-15.5) Hematocrit 31.7 % (36.0-47.0) Mean Corpuscular Volume 101 fL (79-100) Mean Corpuscular Hemoglobin 34 pg (25-35) Mean Corpuscular Hemoglobin Concent 34 g/dL (31-37) Red Cell Distribution Width 12.7 % (11.5-14.5) Platelet Count 375 x10^3/uL (140-400) Neutrophils (%) (Auto) 62 % (31-73) Lymphocytes (%) (Auto) 24 % (24-48) Monocytes (%) (Auto) 9 % (0-9) Eosinophils (%) (Auto) 4 % (0-3) Basophils (%) (Auto) 1 % (0-3) Neutrophils # (Auto) 4.5 x10^3uL (1.8-7.7) Lymphocytes # (Auto) 1.7 x10^3/uL (1.0-4.8) Monocytes # (Auto) 0.7 x10^3/uL (0.0-1.1) Eosinophils # (Auto) 0.3 x10^3/uL (0.0-0.7) Basophils # (Auto) 0.1 x10^3/uL (0.0-0.2) Sodium Level 145 mmol/L (136-145) Potassium Level 3.1 mmol/L (3.5-5.1) Chloride Level 107 mmol/L (98-107) Carbon Dioxide Level 25 mmol/L (21-32) Anion Gap 13 (6-14) Blood Urea Nitrogen 32 mg/dL (7-20) Creatinine 1.4 mg/dL (0.6-1.0) Estimated GFR (Cockcroft-Gault) 43.5 Glucose Level 104 mg/dL (70-99) Calcium Level 8.7 mg/dL (8.5-10.1) Test 10/12/16 11:37 10/12/16 16:29 10/12/16 20:45 10/13/16 05:20 Glucose (Fingerstick) 120 mg/dL (70-99) 87 mg/dL (70-99) 107 mg/dL (70-99) Sodium Level 143 mmol/L (136-145) Potassium Level 3.9 mmol/L (3.5-5.1) Chloride Level 107 mmol/L (98-107) Carbon Dioxide Level 26 mmol/L (21-32) Anion Gap 10 (6-14) Blood Urea Nitrogen 33 mg/dL (7-20) Creatinine 1.4 mg/dL (0.6-1.0) Estimated GFR (Cockcroft-Gault) 43.5 Glucose Level 120 mg/dL (70-99) Calcium Level 8.7 mg/dL (8.5-10.1) Test 10/13/16 07:38 Glucose (Fingerstick) 126 mg/dL (70-99) Laboratory Tests Test 10/12/16 11:37 6/2/17 16:29 10/12/16 20:45 10/13/16 05:20 Glucose (Fingerstick) 120 mg/dL (70-99) 87 mg/dL (70-99) 107 mg/dL (70-99) Sodium Level 143 mmol/L (136-145) Potassium Level 3.9 mmol/L (3.5-5.1) Chloride Level 107 mmol/L (98-107) Carbon Dioxide Level 26 mmol/L (21-32) Anion Gap 10 (6-14) Blood Urea Nitrogen 33 mg/dL (7-20) Creatinine 1.4 mg/dL (0.6-1.0) Estimated GFR (Cockcroft-Gault) 43.5 Glucose Level 120 mg/dL (70-99) Calcium Level 8.7 mg/dL (8.5-10.1) Test 10/13/16 07:38 Glucose (Fingerstick) 126 mg/dL (70-99) Plan Plan For more details regarding further plans, please refer to the orders. MARGUERITE VERDUZCO APRN Oct 13, 2016 09:29
[2016-10-13 11:00] VITALS: BP 136/54
[2016-10-13] MEDS: ENOXAPARIN 30 MG/0.3 ML SYRINGE. SQ SCH (13:00)
[2016-10-14] MEDS ORDERED: FUROSEMIDE 40 MG TABLET. PO SCH (09:00)
--- NOTE | 2016-10-16 13:50 | PDOC ---
Provider Note Provider Note Discharge summary dictated. #[id number] SAMMI DE PAZ MD Oct 16, 2016 13:50
--- NOTE | 2016-10-16 23:07 | DS ---
DATE OF DISCHARGE: 10/13/2016 REASON FOR ADMISSION TO THE HOSPITAL: Shortness of breath, chest pain. CONSULTATIONS: Cardiology, Dr. Mcgill. PROCEDURES DONE: V/Q scan. COMPLICATIONS NOTED: None. HOSPITAL COURSE: The patient is an 81-year-old female who came with shortness of breath with chest pain, had a V/Q scan that was negative. Chest x-ray showed small bilateral pleural effusions. The patient was recently in the hospital, a couple of weeks ago, had extensive workup done including echocardiogram, which shows diastolic dysfunction. The patient had a cardiac catheterization last year, normal coronaries, and the patient was feeling better and was given Lasix and her condition improved and she was discharged. FINAL DIAGNOSES: 1. Shortness of breath secondary to diastolic dysfunction. 2. Fluid overload. 3. Hypertension. 4. Chronic renal insufficiency, stage 3. 5. The patient had a cardiac catheterization last year, which showed normal coronaries. DISPOSITION: Home. DISCHARGE MEDICATIONS: See MRAD for discharge medications. SAMMI DE PAZ MD DR: BHAVANA/sb JOB#: [id number] / [id number]
== END 2016-10-13 15:15 | disposition home health service (06) | DRG 291 ==
LOC: ER 09:47 → 2 NORTH 11:20
PROVIDERS: ADMIT Internal Medicine; ATTEND Internal Medicine
DX: I50.33 Acute on chronic diastolic (congestive) heart failure (principal); J96.00 Acute respiratory failure, unspecified whether with hypoxia or hypercapnia; I13.0 Hypertensive heart and chronic kidney disease with heart failure and stage 1 through stage 4 chronic kidney disease, or unspecified chronic kidney disease; N17.9 Acute kidney failure, unspecified; E78.5 Hyperlipidemia, unspecified; E11.22 Type 2 diabetes mellitus with diabetic chronic kidney disease; G47.33 Obstructive sleep apnea (adult) (pediatric); E03.9 Hypothyroidism, unspecified; I25.10 Atherosclerotic heart disease of native coronary artery without angina pectoris; J44.9 Chronic obstructive pulmonary disease, unspecified; K21.9 Gastro-esophageal reflux disease without esophagitis; M81.0 Age-related osteoporosis without current pathological fracture; N18.3 Chronic kidney disease, stage 3 (moderate); E21.3 Hyperparathyroidism, unspecified; E53.8 Deficiency of other specified B group vitamins; E55.9 Vitamin D deficiency, unspecified; F41.9 Anxiety disorder, unspecified; E11.42 Type 2 diabetes mellitus with diabetic polyneuropathy; K59.00 Constipation, unspecified; M19.90 Unspecified osteoarthritis, unspecified site; Z60.2 Problems related to living alone; K57.90 Diverticulosis of intestine, part unspecified, without perforation or abscess without bleeding; Z98.42 Cataract extraction status, left eye; Z98.41 Cataract extraction status, right eye; Z87.440 Personal history of urinary (tract) infections; Z80.0 Family history of malignant neoplasm of digestive organs; Z83.3 Family history of diabetes mellitus; Z90.49 Acquired absence of other specified parts of digestive tract; Z91.19 Patient's noncompliance with other medical treatment and regimen; Z88.1 Allergy status to other antibiotic agents; Z88.0 Allergy status to penicillin; Z88.2 Allergy status to sulfonamides; Z88.8 Allergy status to other drugs, medicaments and biological substances; Z90.710 Acquired absence of both cervix and uterus
CPT/HCPCS: 36415; 36600; 71010; 71020; 78582; 80048; 81001; 82553; 82805; 82962; 83735; 83880; 84443; 84484; 85027; 85379; 85610; 87040; 93005; 94250; 94640; 94760; 96374; A9540; A9558; G0481; J1650; J1815; J1940; J7620; 99285-25

== ENCOUNTER → 2016-11-19 | Outpatient (CLI) | payer MEDICARE, OTHER ==
[~2016-11-19] MED LIST changes: +ALPR0.254 PO; +ASPI-630 PO; -ASPI81TA2 PO; +LEVO150T PO; +METO50TA2 PO
--- NOTE | 2016-11-20 15:31 | RAD ---
DATE: 11/19/2016 EXAM: DIGITAL SCREEN BILAT W/CAD HISTORY: Asymptomatic screening mammogram. Daughter with a history of breast cancer. COMPARISON: 08/19/2014, 09/13/2015 This study was interpreted with the benefit of Computerized Aided Detection (CAD). The breast parenchyma is primarily fatty replaced. Breast parenchyma level density A. FINDINGS: Bilateral CC and MLO views were performed. There are no suspicious microcalcifications, masses or areas of architectural distortion. Findings are stable from the prior examination. IMPRESSION: Negative bilateral mammogram. BI-RADS CATEGORY: 1 NEGATIVE RECOMMENDED FOLLOW-UP: 12M 12 MONTH FOLLOW-UP PQRS compliance statement: Patient information was entered into a reminder system with a target due date 11/19/2017 for the next mammogram. Mammography is a sensitive method for finding small breast cancers, but it does not detect them all and is not a substitute for careful clinical examination. A negative mammogram does not negate a clinically suspicious finding and should not result in delay in biopsying a clinically suspicious abnormality. "Our facility is accredited by the [employer] Mammography Program."
== END | disposition home or self-care (01) ==
LOC: MAMMO 13:03
PROVIDERS: ATTEND Internal Medicine
DX: Z12.31 Encounter for screening mammogram for malignant neoplasm of breast (principal)
CPT/HCPCS: G0202; 77067

== ENCOUNTER → 2017-07-15 | Outpatient (CLI) | payer MEDICARE, OTHER | END | disposition home or self-care (01) | LOC: RAD 09:37 | DX: M41.84 Other forms of scoliosis, thoracic region (principal); I70.0 Atherosclerosis of aorta | CPT/HCPCS: 71046; 71100 ==